=== PATIENT | male | born 1935 | race Caucasian/White ===

== ENCOUNTER → 2020-06-23 11:05 | Outpatient (CLI) | payer MEDICARE, SELFPAY ==
[2020-06-23 09:59] VITALS: BMI 27.6
[2020-06-23 12:34] LABS: Absolute Lymphocyte Count 1.63 X10^3/uL (0.83-4.51); Absolute Neutrophil Count 3.2 X10^3/uL (2.0-7.7); Basophil# 0.03 X10^3/uL; Basophil% 0.5 % (0-1); Eosinophils% 1.8 % (0-5); Hematocrit 49.9 % (40-54); Hemoglobin 16.1 g/dL (13.0-16.5); Lymphocyte # 1.63 X10^3/ul (4.0); Lymphocyte % 29.3 % (19-41); Mean Corp Hgb Conc 32.3 g/dL (32-36); Mean Corpuscular Volume 93.1 fL (80-94); Mean Platelet Vol. 10.4 fl (6.2-12.0); Monocyte% 10.8 % (0-10); NRBC Flagged by Analyzer 0 % (0-5); Neutrophil # 3.19 X10^3/uL (2.7-7.7); Neutrophil % 57.4 % (47-70); Platelet Count 160 K/mm3 (150-450); RBC Distribution Width CV 13.7 % (11.6-14.6); RBC Distribution Width SD 47.1 fl (35.1-43.9); Red Blood Count 5.36 M/mm3 (4.6-6.2); White Blood Count 5.6 K/mm3 (4.4-11.0)
[2020-06-23 12:56] LABS: Vitamin D,25 Hydroxy 43.1 ng/mL
[2020-06-23 13:07] LABS: Hemoglobin A1c 6.3 % (3.8-5.6)
[2020-06-23 13:08] LABS: ALB/GLOB Ratio 0.8 RATIO (0.9-2.4); AST(SGOT) 19 U/L (15-37); Alanine Aminotransfer ALT/SGPT 25 U/L (16-61); Albumin, Serum 3.4 g/dL (3.2-5.0); Alkaline Phosphatase 91 U/L (45-117); Anion Gap 6 (5-15); BUN 18 mg/dL (7-18); BUN/Creat Ratio 15.7 RATIO (10-20); Calcium,Total 9.1 mg/dL (8.5-10.1); Chloride 107 mmol/L (98-107); Creatinine, Serum 1.15 mg/dL (0.70-1.30); EST Glomerular Filtration Rate 64 mL/min (>60); Est Glom Filt Rate - Afr Amer 78 mL/min (>60); Globulin 4.1 g/dL (2.2-4.2); Glucose 85 mg/dL (74-106); PSA,Total- Diagnostic 0.61 ng/mL (0.0-4.0); Potassium 4.2 mmol/L (3.5-5.1); Protein, Total 7.5 g/dL (6.4-8.2); Sodium Level 142 mmol/L (136-145)
== END ==
PROVIDERS: PCP Internal Medicine; Referring Provider Internal Medicine; Visit Provider Internal Medicine
DX: N20.0 Calculus of kidney (principal); R73.09 Other abnormal glucose; R39.9 Unspecified symptoms and signs involving the genitourinary system; D69.6 Thrombocytopenia, unspecified; R79.89 Other specified abnormal findings of blood chemistry; R35.1 Nocturia; E55.9 Vitamin D deficiency, unspecified
CPT/HCPCS: 36415; 80053; 82306; 83036; 84153; 85025

== ENCOUNTER → 2022-01-04 | Outpatient (CLI) | payer MEDICARE, SELFPAY ==
--- NOTE | 2022-01-04 08:40 | RAD_ITS ---
STUDY: X-RAY - ESOPHAGUS (BARIUM SWALLOW) WITH FLUOROSCOPY REASON FOR EXAM: Male, 86 years old. Food sticking distal esophagus, hx fundoplication TECHNIQUE: 17 view(s) of the esophagus were obtained following swallowing of barium. FLUOROSCOPY TIME (if supplied): (31 seconds) minutes/seconds COMPARISON: None. FINDINGS: There is no demonstrated esophageal foreign body. There is no demonstrated stricture or mucosal abnormality. Normal gastroesophageal junction, without a demonstrated hiatal hernia. The patient ingested a 12 mm tablet of barium. The 12 mm tablet of barium is trapped at the gastroesophageal junction. There is atherosclerotic calcification of the aortic arch with tortuosity of the descending aorta. Normal visualized pulmonary parenchyma. There are diffuse degenerative changes of the visualized thoracic spine. RAD/Esophagus Dual Contrast IMPRESSION: The ingested 12 mm tablet of barium is trapped at the gastroesophageal junction. Electronically Signed: Max Mccollum MD at 12:39 EDT ,
== END | disposition home or self-care (01) ==
LOC: RAD 08:36
PROVIDERS: PCP Internal Medicine; Visit Provider Nurse Practitioner Adult Health
DX: R13.10 Dysphagia, unspecified (principal); Z98.890 Other specified postprocedural states
CPT/HCPCS: 74221

== ENCOUNTER 2022-01-24 09:15 | Day surgery (SDC) | payer MEDICARE, SELFPAY ==
[2022-01-24] VITALS (9 sets, daily range): BP systolic 109–157; BP diastolic 61–71; PULSE 53–80; RESP 16–20; TEMP 35.8–36.2; O2SAT 91–97; BMI 27.6
[2022-01-24] MEDS: Lactated Ringers 1,000 ML 15 ML IV (09:38)
--- NOTE | 2022-01-24 10:30 | IMM_PTH ---
PATIENT: TANK RODRIGUEZ LOC: EN U#:[id number] AGE/SX: 86/M ROOM: RE01/24/[address]: Dr. Nick Orellana DO : 1935 BED: DIS: 01/24/2022 SPEC #: [id number] RECD: 01/24/22 14:25 STATUS: FCO TEMO #: [id number] MORRO: 01/24/22 10:[address]: Nick Orellana DEPT: IMMUNOHISTOCHEMISTRY RECD BY: Gianna Freitas ENTERED: 01/24/22 14:26 SP TYPE: IMMUNO OTHR DR: Dr. Jacqueline Flores MD Tissues: A - Stomach, NOS B - Stomach, NOS Procedures: H Pylori (initial) P53 (initial) KI-67 (add) PHYSICIAN & INSTITUTION [place] [facility] [id number] SPECIMEN INFORMATION: Tissue Source: A ? Gastric body biopsy, B ? Gastric ulcer biopsy Clinical Info: Dysphagia Specimen Number: [id number] A & B CPT code: 74699 x2, 05025 METHODOLOGY: Deparaffinized sections of prefer/formalin-fixed tissue or PAP/DQ stained slides are incubated with monoclonal/polyclonal antibodies/oligonucleotide probes. Localization is made via biotin free immunoperoxidase method. Appropriate controls are performed and reacted as expected. Results on target cell population are indicated in the following table: RESULTS: ANTIBODY / CLONE RESULT Block A H Pylori (polyclonal) negative Block B P53 (DO-7) negative Ki-67 (30-9) positive, low These tests were developed and their performance characteristics determined by [facility]. They may not have been cleared or approved by the U.S. Food and Drug Administration. The FDA has determined that such clearance or approval is not necessary. The above immunohistochemical/dualISH markers are ordered and reviewed by the Pathologist. INTERPRETATION: A. Gastric body, biopsy: Negative for Helicobacter pylori organisms. B. Gastric ulcer, biopsy: No evidence of dysplasia. AM:ambika 01/26/2022
--- NOTE | 2022-01-24 10:30 | EGD_PTH ---
PATIENT: TANK RODRIGUEZ LOC: EN U#:[id number] AGE/SX: 86/M ROOM: RE01/24/[address]: Dr. Nick Orellana DO : 1935 BED: DIS: 01/24/2022 SPEC #: [id number] RECD: 01/24/22 12:55 STATUS: FCO TEMO #: [id number] MORRO: 01/24/22 10:[address]: Nick Orellana DEPT: SURGICAL PATHOLOGY RECD BY: Shameka Green ENTERED: 01/24/22 13:57 SP TYPE: EGD BIOPSY RJ DR: Dr. Jacqueline Flores MD Tissues: A - Gastric mucous membrane B - Gastric mucous membrane C - Esophagus, NOS Procedures: Special Stain Group II Surgery Specimen Level IV Alcian Blue/PAS (control) HEADER OPERATION: EGD ([facility]), biopsy PRE-OP DIAGNOSIS: Dysphagia TISSUE SUBMITTED: A ? Gastric body biopsy, B ? Gastric ulcer biopsy, C ? Distal esophagus biopsy MICROSCOPIC DIAGNOSIS A. Gastric body, biopsy: Mild chronic gastritis. See comment. B. Gastric ulcer, biopsy: Focal ulceration with associated acute inflammation and granulation. Intestinal metaplasia. No evidence of dysplasia. See comment. C. Distal esophagus, biopsy: Gastroesophageal junctional mucosa with mild chronic inflammation. Focal changes of reflux. 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 See comment. AM:ambika 01/25/2022 COMMENT A. The results of immunohistochemistry for Helicobacter pylori will be reported separately ([id number]). B. Immunohistochemistry ([id number]) for P53 and Ki-67 will be performed and results will be reported separately. Alcian blue/PAS stain with matched control supports the above diagnosis. C. Alcian blue/PAS stain with matched control supports the above diagnosis. MICROSCOPIC DESCRIPTION Slides are reviewed. GROSS DESCRIPTION A - Received in fixative is one container labeled with the patient's name and designated gastric body biopsy. The specimen consists of one irregular fragment of light carey soft tissue that measures 0.5 x 0.3 x 0.1 cm. The specimen is totally submitted in one cassette. B - Received in fixative is one container labeled with the patient's name and designated gastric ulcer biopsy. The specimen consists of multiple irregular fragments of light carey soft tissue that in aggregate measure 1 x 0.6 x 0.1 cm. The specimen is totally submitted in one cassette. C - Received in fixative is one container labeled with the patient's name and designated distal esophagus biopsy. The specimen consists of multiple irregular fragments of light carey soft tissue that in aggregate measure 2 x 1 x 0.1 cm. The specimen is totally submitted in one cassette. / AM:ambika 01/24/2022 TC:2 CPT: 94840 x3, 12429 x2
--- NOTE | 2022-01-24 10:36 | PCM.HP.BLA ---
History and Physical Date of Admission: 01/24/22 TANK RODRIGUEZ, is an 86 M who presents to the office today for difficulty swallowing food, started at least 2 mos ago, not getting worse. Food feels like it gets stuck at distal esophagus, doesn't matter what kind of food. At times he has to cough up the food and water that followed it. is concerned that may happen at a restaurant. He denies any pain in the chest or abdomen. No heartburn. No emesis. No nausea. Hx of fundoplication [place] hiatal her[place] [address] Sarabjit Acevedo in [place]. Hx of surgery for peptic ulcer disease in the 1970s. Bowels are regular, he denies diarrhea or constipation. No melena or hematochezia. Very healthy in general, no prescription meds. ROS Const Constitutional: No fatigue ENT ENT: No difficulty swallowing Gastro GI: No abdominal pain, belching, bloating, change in bowel habits, change in stool character, coffee ground emesis, constipation, cramping, diarrhea, heartburn, difficulty swallowing, feeling full early, excessive flatus, incontinent of stools, Vomiting blood/hematemesis, Blood in stool, loose stools, Black,tarry stools, nausea/dyspepsia, pain with swallowing, vomiting or other Musc Musculoskeletal: No joint pain Skin Skin: No yellowing of the eye or itchy eyes Psych Psychiatric: No anxiety and No depression Endo Endocrine: No fatigue Aller/Imm Allergy/Immunologic: No itchy eyes Chris/Lymp Hematologic/Lymphatic: No easy bleeding or easy bruising Exam Const General: healthy appearing, no acute distress, well developed and well groomed Nutritional Appearance: overweight Chest Chest palpation & inspection: normal inspection of the chest Resp Effort & Inspection: normal respiratory effort GI Palpation: soft and nontender Quality Reporting Tobacco Screening ([facility] 138) Smoking Status: Former smoker Assessment and Plan Assessment and Plan (1) Dysphagia: Status: Acute (2) History of fundoplication: Status: Acute Orders: Orders: Esophagus Dual Contrast Today R13.10, Z98.890 Plan - Marcela Cardona SASH ASSEMBLER, SASH ASSEMBLER-C: 86 yr old male w/ difficulty swallowing food, hx of fundoplication. He will be scheduled for EGD with Dr Orellana; in the meantime we will get esophagram. I have re-examined the patient. There are no clinical changes since date of exam.
--- NOTE | 2022-01-24 12:08 | OP.EGD_ITS ---
Patient Name: Lee Huitron Procedure Date: 01/24/2022 11:23 AM Date of : 1935 Age: 86 Procedure: Upper GI endoscopy Indications: Dysphagia Providers: Nick Orellana DO Medicines: Monitored Anesthesia Care Patient Profile: This is an 86 year old male. Refer to note in patient chart for documentation of history and physical. Patient has symptoms of dysphagia with both liquids and solids. Complications: No immediate complications. Procedure: Pre-Anesthesia Assessment: - Prior to the procedure, a History and Physical was performed, and patient medications and allergies were reviewed. The patient is competent. The risks and benefits of the procedure and the sedation options and risks were discussed with the patient. All questions were answered and informed consent was obtained. Patient identification and proposed procedure were verified by the physician in the pre-procedure area. Mental Status Examination: alert and oriented. Airway Examination: normal oropharyngeal airway and neck mobility. Respiratory Examination: clear to auscultation. CV Examination: normal. Prophylactic Antibiotics: The patient does not require prophylactic antibiotics. Prior Anticoagulants: The patient has taken no previous anticoagulant or antiplatelet agents. ASA Grade Assessment: II - A patient with mild systemic disease. After reviewing the risks and benefits, the patient was deemed in satisfactory condition to undergo the procedure. The anesthesia plan was to use moderate sedation / analgesia (conscious sedation). Immediately prior to administration of medications, the patient was re-assessed for adequacy to receive sedatives. The heart rate, respiratory rate, oxygen saturations, blood pressure, adequacy of pulmonary ventilation, and response to care were monitored throughout the procedure. The physical status of the patient was re-assessed after the procedure. After obtaining informed consent, the endoscope was passed under direct vision. Throughout the procedure, the patient's blood pressure, pulse, and oxygen saturations were monitored continuously. The gastroscope was introduced through the mouth, and advanced to the second part of duodenum. The upper GI endoscopy was accomplished without difficulty. The patient tolerated the procedure well. Scope In: 11:31:16 AM Scope Out: 11:58:08 AM Total Procedure Duration Time 0 hours 26 minutes 52 seconds Findings: LA Grade C (one or more mucosal breaks continuous between tops of 2 or more mucosal folds, less than 75% circumference) esophagitis with bleeding was found 36 to 40 cm from the incisors. Biopsies were taken with a cold forceps for histology. Verification of patient identification for the specimen was done. Estimated blood loss was minimal. Coagulation for hemostasis using heater probe was successful. Estimated blood loss was minimal. A severe Schatzki ring was found in the lower third of the esophagus. A TTS dilator was passed through the scope. Dilation with an 18-19-20 mm balloon dilator was performed to 13 mm. The dilation site was examined following endoscope reinsertion and showed mild improvement in luminal narrowing. Estimated blood loss was minimal. A medium-sized hiatal hernia was present. Diffuse moderate inflammation characterized by erosions, erythema and friability was found in the gastric body. Biopsies were taken with a cold forceps for histology. Verification of patient identification for the specimen was done. Estimated blood loss was minimal. One non-bleeding linear gastric ulcer with no stigmata of bleeding was found in the gastric antrum. The lesion was 6 mm in largest dimension. Biopsies were taken with a cold forceps for histology. Verification of patient identification for the specimen was done. Estimated blood loss was minimal. The second portion of the duodenum was normal. Evidence of a pyloroplasty was found in the pylorus. This was characterized by ulceration. Impression: - LA Grade C reflux esophagitis. Biopsied. Treated with a heater probe. - Severe Schatzki ring. Dilated. - Medium-sized hiatal hernia. - Chronic gastritis. Biopsied. - Non-bleeding gastric ulcer with no stigmata of bleeding. Biopsied. - Normal second portion of the duodenum. - A pyloroplasty was found, characterized by ulceration. Recommendation: - Discharge patient to home. - Use Protonix (pantoprazole) 40 mg PO BID for 12 weeks. - Use sucralfate suspension 1 gram PO QID for 4 days. - No aspirin, ibuprofen, naproxen, or other non-steroidal anti-inflammatory drugs for 13 days. Procedure Code(s): --- Professional --- 78572, 59, Esophagogastroduodenoscopy, flexible, transoral; with control of bleeding, any method 66606, 51, Esophagogastroduodenoscopy, flexible, transoral; with transendoscopic balloon dilation of esophagus (less than 30 mm diameter) 10510, 59, Esophagogastroduodenoscopy, flexible, transoral; with biopsy, single or multiple CPT copyright 2017 [employer]. All rights reserved. The codes documented in this report are preliminary and upon program supervisor review may be revised to meet current compliance requirements. Nick Orellana DO 01/24/2022 12:08:03 PM This report has been signed electronically. Number of Addenda: 1 Note Initiated On: 01/24/2022 11:23 AM Addendum Number: 1 Addendum Date: 05/29/2022 6:32:23 AM MAC was used as sedation for this procedure. Nick Orellana DO 05/29/2022 6:32:29 AM This report has been signed electronically.
--- NOTE | 2022-01-24 12:09 | OP.CCLET_ITS ---
05/29/2022 Jacqueline Flores [facility] [address] [place] [address] Re : Upper GI endoscopy procedure for Lee Huitron Dear Dr. Flores This procedure was performed on Monday, January 24, 2022. My impressions and recommendations are as follows: Impressions : - LA Grade C reflux esophagitis. Biopsied. Treated with a heater probe. - Severe Schatzki ring. Dilated. - Medium-sized hiatal hernia. - Chronic gastritis. Biopsied. - Non-bleeding gastric ulcer with no stigmata of bleeding. Biopsied. - Normal second portion of the duodenum. - A pyloroplasty was found, characterized by ulceration. Recommendations : - Discharge patient to home. - Use Protonix (pantoprazole) 40 mg PO BID for 12 weeks. - Use sucralfate suspension 1 gram PO QID for 4 days. - No aspirin, ibuprofen, naproxen, or other non-steroidal anti-inflammatory drugs for 13 days. My findings are described in the full procedure note, which is enclosed. If I can be of further assistance, please feel free to contact me at . Sincerely, Nick Orellana, 01/24/2022 12:08:03 PM This report has been signed electronically.
== END 2022-01-24 13:45 | disposition home or self-care (01) ==
LOC: EN 09:16 → AC 09:17
PROVIDERS: PCP Internal Medicine; Referring Provider Internal Medicine; Visit Provider Internal Medicine Gastroenterology
PROC: 0DJ08ZZ Inspection of Upper Intestinal Tract, Via Natural or Artificial Opening Endoscopic (ICD-10-PCS; CPT 43235; principal; 2022-01-24 10:25)
DX: K21.00 Gastro-esophageal reflux disease with esophagitis, without bleeding (principal); K29.50 Unspecified chronic gastritis without bleeding; K44.9 Diaphragmatic hernia without obstruction or gangrene; K22.70 Barrett's esophagus without dysplasia; K22.2 Esophageal obstruction; K25.3 Acute gastric ulcer without hemorrhage or perforation; Z87.891 Personal history of nicotine dependence
CPT/HCPCS: 43239; 43249; 43255; 88305; 88313; 88341; 88342; J7120; J2405

== ENCOUNTER → 2022-07-16 | Outpatient (CLI) | payer MEDICARE, SELFPAY ==
--- NOTE | 2022-07-16 13:59 | ST.MBS ---
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 He recently had follow-up with gastroenterology WORKPLACE REHABILITATION OFFICER, Marcela Cardona, on 07/08/2022 due to partial return of dysphagia symptoms, which resolved after esophageal dilation of severe Schatzki ring on 01/24/2022. He says food sits at bottom of throat/upper esophagus, and he must swallow twice. He has continued on pantoprazole to manage reflux. Current Diet Ordered: Regular textures / Thin liquids Dentition: WNL Mental Status: WNL Respiratory Status: Oxygenating on Room Air - Penetration-Aspiration Scale Penetration-Aspiration Scale: OBJECTIVE ASSESSMENT OF SWALLOW FUNCTION (QUANTITATIVE ? PER TRIAL): PENETRATION / ASPIRATION SCALE (ORTIZ): 1 = does not enter airway 2 = enters airway/above vocal folds/ejected 3 = enters airway/above vocal folds/not ejected 4 = enters airway/contacts vocal folds/ejected 5 = enters airway/contacts vocal folds/not ejected 6 = enters airway/below vocal folds/ejected 7 = enters airway/below vocal folds/not ejected despite effort 8 = enters airway/below vocal folds/no effort VIDEOFLOROSCOPIC SCALE SCORE (ORTIZ): Grade I = aspiration of material that has penetrated into the laryngeal vestibule, intact cough reflex Grade II = aspiration < 10 % of the bolus, intact cough reflex Grade III = aspiration of < 10 % of the bolus, reduced cough reflex or aspiration of > 10 % of the bolus, intact cough reflex Grade IV = aspiration of > 10 % of the bolus, reduced cough reflex - Penetration-Aspiration Scale Score Thin Liquid via teaspoon Result: 1= does not enter airway Thin Liquid via teaspoon Trial 2 Result: 1= does not enter airway Thin Liquid via small single sip from cup cued third swallow Result: 2= enter airway/above vocal folds/ejected Thin Liquid via sequential sips from cup Result: 3= enters airways/above vocal folds/not ejected [place] Thick Liquid via small single sip from cup Result: 1= does not enter airway Honey Thick Liquid via small single sip from cup Result: 1= does not enter airway Pudding via teaspoon with esophageal screen Result: 1= does not enter airway 1/2 Cookie Result: 1= does not enter airway Thin Liquid via single sip from straw Result: 3= enters airways/above vocal folds/not ejected Thin Liquid via small single sip from cup Effortful swallow Result: 1= does not enter airway - Oral Phase Labial Seal: No Labial Escape Tongue Control During Bolus Hold: Posterior escape of greater than half of bolus Bolus Preparation/Mastication: Timely and efficient chewing and mashing Bolus Transport/Lingual Motion: Delayed initiation of tongue motion Oral Residue: Residue collection on oral structures - piecemeal deglutition of cookie - Pharyngeal Phase Initiation of Pharyngeal Swallow: Bolus head in pyriforms Soft Palate Elevation: Trace column of contrast/air between soft palate and pharyngeal wall Laryngeal Elevation: Partial superior movement thyroid cart/partial apprx aryt-epig petiole Anterior Hyoid Excursion: Partial anterior movement Epiglottic Movement: Partial inversion Laryngeal Vestibule Closure at Height of Swallow: Incomplete; narrow column of air/contrast in laryngeal vestibule Pharyngeal Stripping Wave: Present - diminished Pharyngoesophageal Segment Opening: Parital distension and partial duration; parital obstruction of flow Tongue Base Retraction: Wide column of contrast between tongue base & post. pharyngeal wall Pharyngeal Residue: Collection of residue within or on pharyngeal structures - Esophageal Phase Esophageal Clearance: Complete clearance - Treatment Strategies Effects of treatment strategies attemped:: Double swallow = effective. Effortful swallow = effective. - Diagnosis/Impression Diagnosis: Mild oropharyngeal phase dysphagia (R13.12) Impression: The oral phase is primarily marked by... -Decreased bolus control with >1/2 of the bolus spilling posteriorly to the pyriforms prior to swallow onset observed with thin liquids especially. -Delayed tongue motion for A-P transport -Mild oral residue after the swallow of cookie, which effectively cleared with independent initiation of a second swallow. The pharyngeal phase is primarily marked by... -Decreased airway closure during the swallow due to decreased anterior hyoid excursion, decreased epiglottic inversion, and decreased laryngeal elevation. -Moderately decreased tongue base retraction, mildly decreased UES opening/duration, and mildly decreased pharyngeal stripping wave with resulting mild-moderate pharyngeal residues of liquids after the swallow. Independent use of a double swallow effectively cleared the pharynx. He demonstrated good pharyngeal clearance of pudding and cookie despite sensation of cookie caught in his throat (only trace residue present on fluoroscopy - INTERNAL COMMUNICATIONS MANAGER discussed the patient possibly was experiencing globus sensation secondary to reflux). -Consistent laryngeal penetration with thin liquids via cup. Sequential sips and sips via straw did not reliably eject from the laryngeal vestibule after the swallow. Use of effortful swallow and decreased bolus size was most effective in decreasing laryngeal penetration during the swallow. - Recommendations Diet: Regular Textures, Thin Liquids Compensatory Strategies: Small Bites, Small Sips - hard swallow on each sip, double swallow on each sip, Slow Rate, Alternate bites/solids and sips/liquids, Sitting upright, Remain sitting upright for 30 minutes after PO intake Supervision: Assist as needed - family assist with cues as needed Recommend Repeat Modified Barium Swallow: No Need for Skilled Speech Therapy Services: Yes Comment: Will recommend the patient for outpatient dysphagia therapy to address deficits in oropharyngeal swallow function. Will recommend the patient for oropharyngeal strengthening to improve tongue base retraction, laryngeal elevation, hyoid excursion, pharyngeal contraction, and duration of UES opening (Jessica, Danika, effortful swallow, CTAR). The patient would benefit from thorough education regarding diet recommendations and recommended compensatory strategies. He would also benefit from continued education re: reflux management. Recommended Referrals: GI Consult - continue to follow with GI for management of reflux and Vizcarra's esophagus Education Completed: 1. Described result of evaluation., 2. Pt understands evaluation & agrees with goals and treatment plan., 4. Family/caregivers understand evaluation & agree w/ goals & tx plan., 7. Pt requires further education on strategies & risks. Comment: Additional education provided re: reflux management. INTERNAL COMMUNICATIONS MANAGER recommended considering use of bed wedge, limiting food/drink 3 hours before lying down for bed, increasing hydration, avoiding foods high in fat/acid, avoiding carbonated beverages, and avoiding caffeine and chocolate. Pt would benefit from continued education. - Status Active ST Patient: Active - Contact Information [facility] Speech Therapy:: Joanne Cruz M.A. [facility]-INTERNAL COMMUNICATIONS MANAGER Speech-Language Pathologist [facility] [address] [place] [address] [email or web address] [phone] 07/16/22 14:01
== END | disposition home or self-care (01) ==
PROVIDERS: PCP Internal Medicine; Referring Provider Nurse Practitioner Adult Health; Visit Provider Nurse Practitioner Adult Health
DX: R13.12 Dysphagia, oropharyngeal phase (principal)
CPT/HCPCS: 74230; 92611

== ENCOUNTER 2022-07-20 11:52 | Outpatient (RCR) | payer MEDICARE, SELFPAY ==
--- NOTE | 2022-07-24 10:22 | ST ---
[facility] Speech Pathology [address] [place] [place] [address] Modified Barium Swallow Study MR#: [id number] Acct: [id number] Name: LEE RODRIGUEZ Rep #: [id number] : 1935 86 From: Joanne Cruz M.A., [facility]-PIE BOTTOMER Modified Barium Swallow - Patient Information Study Date: 07/16/22 Study Time: 13:00 Direct Billable Minutes: 90 Total Minutes procedure & reportin Diagnosis: Vizcarra Esophagus (K22.7), Dysphagia (R13.10) Referring Physician: Marcela Cardona NP Reason for Referral: Objectively assess swallow function, risk for aspiration, and determine recommendations for least restrictive diet textures and compensatory strategies to improve safety of swallow. 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 He says food sits at bottom of throat/upper esophagus, and he must swallow twice. He has continued on pantoprazole to manage reflux. Current Diet Ordered: Regular textures / Thin liquids Dentition: WNL Mental Status: WNL Respiratory Status: Oxygenating on Room Air - Penetration-Aspiration Scale Penetration-Aspiration Scale: OBJECTIVE ASSESSMENT OF SWALLOW FUNCTION (QUANTITATIVE ? PER TRIAL): PENETRATION / ASPIRATION SCALE (ORTIZ): 1 = does not enter airway 2 = enters airway/above vocal folds/ejected 3 = enters airway/above vocal folds/not ejected 4 = enters airway/contacts vocal folds/ejected 5 = enters airway/contacts vocal folds/not ejected 6 = enters airway/below vocal folds/ejected 7 = enters airway/below vocal folds/not ejected despite effort 8 = enters airway/below vocal folds/no effort VIDEOFLOROSCOPIC SCALE SCORE (ORTIZ): Grade I = aspiration of material that has penetrated into the laryngeal vestibule, intact cough reflex Grade II = aspiration < 10 % of the bolus, intact cough reflex Grade III = aspiration of < 10 % of the bolus, reduced cough reflex or aspiration of > 10 % of the bolus, intact cough reflex Grade IV = aspiration of > 10 % of the bolus, reduced cough reflex. - Penetration-Aspiration Scale Score Thin Liquid via teaspoon Result: 1= does not enter airway Thin Liquid via teaspoon Trial 2 Result: 1= does not enter airway Thin Liquid via small single sip from cup cued third swallow Result: 2= enter airway/above vocal folds/ejected Thin Liquid via sequential sips from cup Result: 3= enters airways/above vocal folds/not ejected [place] Thick Liquid via small single sip from cup Result: 1= does not enter airway [place] Thick Liquid via small single sip from cup Result: 1= does not enter airway Pudding via teaspoon with esophageal screen Result: 1= does not enter airway 1/2 Cookie Result: 1= does not enter airway Thin Liquid via single sip from straw Result: 3= enters airways/above vocal folds/not ejected Thin Liquid via small single sip from cup Effortful swallow Result: 1= does not enter airway - Oral Phase Labial Seal: No Labial Escape Tongue Control During Bolus Hold: Posterior escape of greater than half of bolus Bolus Preparation/Mastication: Timely and efficient chewing and mashing Bolus Transport/Lingual Motion: Delayed initiation of tongue motion Oral Residue: Residue collection on oral structures - piecemeal deglutition of cookie - Pharyngeal Phase Initiation of Pharyngeal Swallow: Bolus head in pyriforms Soft Palate Elevation: Trace column of contrast/air between soft palate and pharyngeal wall Laryngeal Elevation: Partial superior movement thyroid cart/partial apprx aryt-epig petiole Anterior Hyoid Excursion: Partial anterior movement Epiglottic Movement: Partial inversion Laryngeal Vestibule Closure at Height of Swallow: Incomplete; narrow column of air/contrast in laryngeal vestibule Pharyngeal Stripping Wave: Present - diminished Pharyngoesophageal Segment Opening: Parital distension and partial duration; parital obstruction of flow Tongue Base Retraction: Wide column of contrast between tongue base & post. pharyngeal wall Pharyngeal Residue: Collection of residue within or on pharyngeal structures - Esophageal Phase Esophageal Clearance: Complete clearance - Treatment Strategies Effects of treatment strategies attemped:: Double swallow = effective. Effortful swallow = effective. - Diagnosis/Impression Diagnosis: Mild oropharyngeal phase dysphagia (R13.12) Impression: The oral phase is primarily marked by... -Decreased bolus control with >1/2 of the bolus spilling posteriorly to the pyriforms prior to swallow onset observed with thin liquids especially. -Delayed tongue motion for A-P transport -Mild oral residue after the swallow of cookie, which effectively cleared with independent initiation of a second swallow. The pharyngeal phase is primarily marked by... -Decreased airway closure during the swallow due to decreased anterior hyoid excursion, decreased epiglottic inversion, and decreased laryngeal elevation. -Moderately decreased tongue base retraction, mildly decreased UES opening/duration, and mildly decreased pharyngeal stripping wave with resulting mild-moderate pharyngeal residues of liquids after the swallow. Independent use of a double swallow effectively cleared the pharynx. He demonstrated good pharyngeal clearance of pudding and cookie despite sensation of cookie caught in his throat (only trace residue present on fluoroscopy - PIE BOTTOMER discussed the patient possibly was experiencing globus sensation secondary to reflux). -Consistent laryngeal penetration with thin liquids via cup. Sequential sips and sips via straw did not reliably eject from the laryngeal vestibule after the swallow. Use of effortful swallow and decreased bolus size was most effective in decreasing laryngeal penetration during the swallow. - Recommendations Diet: Regular Textures, Thin Liquids Compensatory Strategies: Small Bites, Small Sips - hard swallow on each sip, double swallow on each sip, Slow Rate, Alternate bites/solids and sips/liquids, Sitting upright, Remain sitting upright for 30 minutes after PO intake Supervision: Assist as needed - family assist with cues as needed Recommend Repeat Modified Barium Swallow: No Need for Skilled Speech Therapy Services: Yes Comment: Will recommend the patient for outpatient dysphagia therapy to address deficits in oropharyngeal swallow function. Will recommend the patient for oropharyngeal strengthening to improve tongue base retraction, laryngeal elevation, hyoid excursion, pharyngeal contraction, and duration of UES opening (JessicaLee gillespiesohn, effortful swallow, CTAR). The patient would benefit from thorough education regarding diet recommendations and recommended compensatory strategies. He would also benefit from continued education re: reflux management. Recommended Referrals: GI Consult - continue to follow with GI for management of reflux and Vizcarra's esophagus Education Completed: 1. Described result of evaluation., 2. Pt understands evaluation & agrees with goals and treatment plan., 4. Family/caregivers understand evaluation & agree w/ goals & tx plan., 7. Pt requires further education on strategies & risks. Comment: Additional education provided re: reflux management. PIE BOTTOMER recommended considering use of bed wedge, limiting food/drink 3 hours before lying down for bed, increasing hydration, avoiding foods high in fat/acid, avoiding carbonated beverages, and avoiding caffeine and chocolate. Pt would benefit from continued education. - Contact Information [facility] Speech Therapy:: Joanne Cruz M.A. [facility] BOTTOMER Speech-Language Pathologist [facility] [address] [place] [address] [email or web address] [phone] 07/16/22 14:01
--- NOTE | 2022-07-24 10:40 | HP.SP.EVAL ---
History - History Date of Eval: 07/20/22 Medical Diagnosis (from RX): Dysphagia Date of Onset of Diagnosis: February 2022 Previous speech therapy: No Other Relevant Medical History/Diagnoses/Surgery: Esophageal dilation on 01/24/22 Medications related to this diagnosis: Pantoprazole Smoking Status: Never smoker Hx Smoking: Yes - SMOK'D PIPE ABOUT 30YR/ QUIT 20YRS AGO Hx Tobacco Use: No - Pain Is pain an issue with your current prescribed condition?: No Patient Allergies - Allergies Allergies No Known Allergies Allergy (Verified 07/02/22 10:48) Subjective Dysphagia - Symptoms Reported Other: Globus feeling - Current Diet Solids Current Diet: Regular - Current Diet Liquids Current Liquids: Thin [place] free water Protocol: No Objective Dysphagia - Impact Impact on Safety & Functioning: Risk for Aspiration - Recommendations Modified Barium Swallow/Cookie Swallow Recommended: Yes Swallowing Treatment: Yes - Diet Texture Recommendations Solids: Regular (Level 7) Liquids: Thin (Level 0) [place] free water Protocol: No - Safety Saftey Precautions/Swallowing Recommendations (Check all that Apply): Small Sips & Bites when Eating, Multiple Swallows, Alternate Liquids & Solids, Other (Specify Below) Other: Effortful swallow - Results Swallowing Within Normal Limits: No Swallowing Diagnosis: Oropharyngeal Phase Dysphagia (R13.12) Severity: Mild Modified Barium Results Hx MBS Results (from prior exam): 07/24/22 10:22 Speech Therapy by Navdeep Coronel [facility] Speech Pathology [address] [place] [address] Modified Barium Swallow Study MR#: [id number] Acct: [id number] Name: LEE RODRIGUEZ Rep #: [id number] : 1935 86 From: Joanne Cruz M.A., [facility]-BULLET SLUG CASTING MACHINE OPERATOR Modified Barium Swallow - Patient Information Study Date: 07/16/22 Study Time: 13:00 Direct Billable Minutes: 90 Total Minutes procedure & reportin Diagnosis: Vizcarra Esophagus (K22.7), Dysphagia (R13.10) Referring Physician: Marcela Cardona NP Reason for Referral: Objectively assess swallow function, risk for aspiration, and determine recommendations for least restrictive diet textures and compensatory strategies to improve safety of swallow. 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 He says food sits at bottom of throat/upper esophagus, and he must swallow twice. He has continued on pantoprazole to manage reflux. Current Diet Ordered: Regular textures / Thin liquids Dentition: WNL Mental Status: WNL Respiratory Status: Oxygenating on Room Air - Penetration-Aspiration Scale Penetration-Aspiration Scale: OBJECTIVE ASSESSMENT OF SWALLOW FUNCTION (QUANTITATIVE ? PER TRIAL): PENETRATION / ASPIRATION SCALE (ORTIZ): 1 = does not enter airway 2 = enters airway/above vocal folds/ejected 3 = enters airway/above vocal folds/not ejected 4 = enters airway/contacts vocal folds/ejected 5 = enters airway/contacts vocal folds/not ejected 6 = enters airway/below vocal folds/ejected 7 = enters airway/below vocal folds/not ejected despite effort 8 = enters airway/below vocal folds/no effort VIDEOFLOROSCOPIC SCALE SCORE (ORTIZ): Grade I = aspiration of material that has penetrated into the laryngeal vestibule, intact cough reflex Grade II = aspiration < 10 % of the bolus, intact cough reflex Grade III = aspiration of < 10 % of the bolus, reduced cough reflex or aspiration of > 10 % of the bolus, intact cough reflex Grade IV = aspiration of > 10 % of the bolus, reduced cough reflex. - Penetration-Aspiration Scale Score Thin Liquid via teaspoon Result: 1= does not enter airway Thin Liquid via teaspoon Trial 2 Result: 1= does not enter airway Thin Liquid via small single sip from cup cued third swallow Result: 2= enter airway/above vocal folds/ejected Thin Liquid via sequential sips from cup Result: 3= enters airways/above vocal folds/not ejected [place] Thick Liquid via small single sip from cup Result: 1= does not enter airway [place] Thick Liquid via small single sip from cup Result: 1= does not enter airway Pudding via teaspoon with esophageal screen Result: 1= does not enter airway 1/2 Cookie Result: 1= does not enter airway Thin Liquid via single sip from straw Result: 3= enters airways/above vocal folds/not ejected Thin Liquid via small single sip from cup Effortful swallow Result: 1= does not enter airway - Oral Phase Labial Seal: No Labial Escape Tongue Control During Bolus Hold: Posterior escape of greater than half of bolus Bolus Preparation/Mastication: Timely and efficient chewing and mashing Bolus Transport/Lingual Motion: Delayed initiation of tongue motion Oral Residue: Residue collection on oral structures - piecemeal deglutition of cookie - Pharyngeal Phase Initiation of Pharyngeal Swallow: Bolus head in pyriforms Soft Palate Elevation: Trace column of contrast/air between soft palate and pharyngeal wall Laryngeal Elevation: Partial superior movement thyroid cart/partial apprx aryt-epig petiole Anterior Hyoid Excursion: Partial anterior movement Epiglottic Movement: Partial inversion Laryngeal Vestibule Closure at Height of Swallow: Incomplete; narrow column of air/contrast in laryngeal vestibule Pharyngeal Stripping Wave: Present - diminished Pharyngoesophageal Segment Opening: Parital distension and partial duration; parital obstruction of flow Tongue Base Retraction: Wide column of contrast between tongue base & post. pharyngeal wall Pharyngeal Residue: Collection of residue within or on pharyngeal structures - Esophageal Phase Esophageal Clearance: Complete clearance - Treatment Strategies Effects of treatment strategies attemped:: Double swallow = effective. Effortful swallow = effective. - Diagnosis/Impression Diagnosis: Mild oropharyngeal phase dysphagia (R13.12) Impression: The oral phase is primarily marked by... -Decreased bolus control with >1/2 of the bolus spilling posteriorly to the pyriforms prior to swallow onset observed with thin liquids especially. -Delayed tongue motion for A-P transport -Mild oral residue after the swallow of cookie, which effectively cleared with independent initiation of a second swallow. The pharyngeal phase is primarily marked by... -Decreased airway closure during the swallow due to decreased anterior hyoid excursion, decreased epiglottic inversion, and decreased laryngeal elevation. -Moderately decreased tongue base retraction, mildly decreased UES opening/duration, and mildly decreased pharyngeal stripping wave with resulting mild-moderate pharyngeal residues of liquids after the swallow. Independent use of a double swallow effectively cleared the pharynx. He demonstrated good pharyngeal clearance of pudding and cookie despite sensation of cookie caught in his throat (only trace residue present on fluoroscopy - BULLET SLUG CASTING MACHINE OPERATOR discussed the patient possibly was experiencing globus sensation secondary to reflux). -Consistent laryngeal penetration with thin liquids via cup. Sequential sips and sips via straw did not reliably eject from the laryngeal vestibule after the swallow. Use of effortful swallow and decreased bolus size was most effective in decreasing laryngeal penetration during the swallow. - Recommendations Diet: Regular Textures, Thin Liquids Compensatory Strategies: Small Bites, Small Sips - hard swallow on each sip, double swallow on each sip, Slow Rate, Alternate bites/solids and sips/liquids, Sitting upright, Remain sitting upright for 30 minutes after PO intake Supervision: Assist as needed - family assist with cues as needed Recommend Repeat Modified Barium Swallow: No Need for Skilled Speech Therapy Services: Yes Comment: Will recommend the patient for outpatient dysphagia therapy to address deficits in oropharyngeal swallow function. Will recommend the patient for oropharyngeal strengthening to improve tongue base retraction, laryngeal elevation, hyoid excursion, pharyngeal contraction, and duration of UES opening (Jessica, Danika, effortful swallow, CTAR). The patient would benefit from thorough education regarding diet recommendations and recommended compensatory strategies. He would also benefit from continued education re: reflux management. Recommended Referrals: GI Consult - continue to follow with GI for management of reflux and Vizcarra's esophagus Education Completed: 1. Described result of evaluation., 2. Pt understands evaluation & agrees with goals and treatment plan., 4. Family/caregivers understand evaluation & agree w/ goals & tx plan., 7. Pt requires further education on strategies & risks. Comment: Additional education provided re: reflux management. BULLET SLUG CASTING MACHINE OPERATOR recommended considering use of bed wedge, limiting food/drink 3 hours before lying down for bed, increasing hydration, avoiding foods high in fat/acid, avoiding carbonated beverages, and avoiding caffeine and chocolate. Pt would benefit from continued education. - Contact Information [facility] Speech Therapy:: Joanne Cruz M.A. [facility]-BULLET SLUG CASTING MACHINE OPERATOR Speech-Language Pathologist [facility] [address] [place] [address] [email or web address] [phone] 07/16/22 14:01 Electronically signed by Navdeep Coronel M.A., [facility]-BULLET SLUG CASTING MACHINE OPERATOR on 07/24/22 10:26 Initialized on 07/24/22 10:22 - END OF NOTE Swallowing Performance Scale - Swallowing Performance Scale Swallowing Performance Scale Result: 2 Within Functional Limit Other - Other Education -: The patient, along with his , was educated on results of MBS as well as recommendations. The patient was provided with oropharyngeal exercises with instructions. He demonstrated the ability to independently complete, therefore he will complete at home for 4-6 weeks. He was educated on use of strategies ( double swallow and effortful swallow ) Plan - Plan Plan: Patient will complete exercises at home for 4-6 weeks with a re-evaluation after that in 6-8 weeks. Patient is in agreement with home exercise plan and will return in 6-8 weeks. - Recommendations Treatment Warranted: Yes Treatment Warranted: Dysphagia - Progress Prognosis: Good - Frequency Frequency: 1-2x in 6-8 weeks - Goals that are Established Determination:: Goals will be added/modified as deemed necessary and appropriate. Therapy will be discontinued when results of re-evaluation indicate therapy is no longer needed or lack of progress has been documented. - Goal #1-5 Goal #1: The Patient will tolerate the least restrictive means of nutrition to facilitate adequate hydration/nutrition with optimum safety and efficiency of swallowing function during P.O. intake without overt signs and symptoms of aspiration. Goal #2: The Patient will utilize recommended compensatory swallowing techniques to facilitate improved airway protection and decreased risk for aspiration during PO intake. Education - Patient has Indicated that the Following Identified Educational Needs: None The Patient has indicated that they have no educational or learning abilities that may effect their care.: Yes - Patient Instruction Patient Education: Diagnosis, Treatment Plan, Home Exercise Program Person Taught: Patient, Family Teaching Method: Discussion
== END 2022-07-20 19:00 | disposition home or self-care (01) ==
LOC: SP 11:52
PROVIDERS: PCP Internal Medicine; Referring Provider Nurse Practitioner Adult Health; Visit Provider Nurse Practitioner Adult Health
DX: R13.10 Dysphagia, unspecified (principal)
CPT/HCPCS: 92610

== ENCOUNTER 2023-04-04 11:09 | Emergency (ER) | payer MEDICARE, SELFPAY ==
[2023-04-04 11:10] VITALS: BP 137/71; PULSE 65; RESP 14; TEMP 36.4; O2SAT 98; BMI 26.6
--- NOTE | 2023-04-04 11:41 | EDS_ITS ---
HPI History of Present Illness Chief Complaint: Lower Extremity Injury Narrative Narrative: 87-year-old male presenting with knee pain. He states that he was working in his workshop at home and kneeled down on an extension cord which he kneeled just below the patella and states that this hurt. He was able to stand up. He did not kneel down hard. He did not fall. He has been having antalgic gait since then. He has been using a walker to get around. Numbness or tingling. No lac erations or abrasions. [facility] Medical History Cataracts, bilateral Cough History of ulceration Kidney stones Non-smoker Schatzki's ring Wears dentures Wears glasses Home Medications ascorbate calcium (vitamin C) 500 mg tablet 500 mg PO DAILY 06/21/20 [History Last Taken Unknown] omega-3 fatty acids 1,000 mg capsule 1,000 mg PO BID 06/21/20 [History Last Taken Unknown] vitamins A,C,D-genc-qcszjy 4,296 mcg-226 mg-90 mg capsule (PreserVision AREDS) 1 cap PO BID 06/21/20 [History Last Taken Unknown] sucralfate 100 mg/mL oral suspension 10 ml PO Q6H #1,000 mL 01/24/22 [Rx Last Taken Unknown] pantoprazole 40 mg tablet,delayed release 40 mg PO DAILY #90 tabs 12/03/22 [Rx Last Taken Unknown] Allergy/AdvReac Type Severity Reaction Status Date / Time No Known Allergies Allergy Verified 07/02/22 10:48 Surgical History History of cystoscopy History of fundoplication Hx of left cataract extraction Hx of right cataract extraction Social History Smoking Status: Never smoker alcohol intake: never substance use type: does not use what type of physical activity do you participate in: none ROS ROS ED Constitutional Constitutional ED: Denies chills, fever(s) or sweats Eyes Eyes: Denies blurry vision or change in vision ENT ENT ED: Denies ear pain or sore throat Cardiovascular Cardiovascular: Denies chest pain, palpitations or racing heartbeat Respiratory/Chest Respiratory/Chest: Denies cough, dyspnea or sputum Gastrointestinal Gastrointestinal: Denies abdominal pain, constipation, diarrhea, nausea or vomiting Genitourinary Genitourinary ED: Denies dysuria, hematuria or urinary frequency Musculoskeletal Musculoskeletal: Reports other Details: Knee pain ; Denies arthralgias, myalgias or neck pain Integumentary Denies abscess, Abrasions or rash Neurologic Neurologic: Denies headache(s), paresthesias or weakness Psychiatric Psychiatric: Denies anxiety, depression, suicidal ideation or suicidal thoughts Endocrine Endocrinology: Denies polydipsia or polyuria EXAM Physical Exam Const Vital Signs: 04/04/23 11:10 Temperature 97.6 F L Temperature Source Temporal Pulse Rate 65 Respiratory Rate 14 Blood Pressure 137/71 H Blood Pressure Mean 93 Pulse Ox 98 Oxygen Delivery Method Room Air General Appearance ED: Negative for pallor HEENT Reports normocephalic and head/scalp atraumatic Eyes PERRL and EOMs intact bilaterally Neck no lymphadenopathy and supple Resp normal respiratory effort and no retractions Cardio regular rate and regular rhythm Narrative: Deferred Extremity Extremity Narrative: Tenderness to palpation beneath the left patella. No ligamentous laxity. No significant edema or bruising. Left knee extensor mechanism is intact. General Extremety ED: Yes edema and tenderness General Extremity: edema Neuro oriented x3 and CN's II-XII intact bilaterally Sensorium / Orientation: alert Motor Exam: strength 5/5 throughout Psych mental status grossly normal Skin no rashes or lesions noted and no wounds General Skin Exam: Negative for jaundice or pallor MDM MDM MDM Narrative Medical decision making narrative: Patient presenting with left knee pain after kneeling down on an extension cord. He has tenderness under the patella. On the left knee. Differential includes knee contusion or fracture. Will obtain x-ray. Patient given Tylenol. Knee x- ray on my interpretation shows a very small joint effusion there is some soft tissue swelling present as well. Radiologist interprets this and agrees. Patient use Tylenol, rest, ice and elevation at home. Impression: 1. Left knee contusion 2. Left knee effusion Radiography Diagnostic Testing: Clinical Impression(s) from Imaging Studies Knee X-Ray 04/04/23 11:50 IMPRESSION: Soft tissue swelling and a small joint effusion. Electronically Signed: Max Mccollum MD at 12:35 EDT , Discharge Plan Triage Chief Complaint: Lower Extremity Injury ED Provider: Eric Ortiz Dx/Rx/DC Orders Instructions: ED Contusion, Lower Extremity, ED Knee Effusion Prescriptions: No Action PreserVision AREDS [id number] capsule 1 cap PO BID omega-3 fatty acids 1,000 mg capsule 1,000 mg PO BID ascorbate calcium (vitamin C) 500 mg tablet 500 mg PO DAILY sucralfate 100 mg/mL suspension 10 ml PO Q6H Qty: 1000 2RF pantoprazole 40 mg tablet,delayed release (DR/EC) 40 mg PO DAILY Qty: 90 3RF Primary Care Provider: Jacqueline Flores Referrals: Jacqueline Flores MD [Primary Care Provider] -
--- NOTE | 2023-04-04 11:50 | RAD_ITS ---
STUDY: X-RAY - LEFT KNEE REASON FOR EXAM: Male, 87 years old. Pain following a fall. TECHNIQUE: 4 view(s) of the knee. COMPARISON: None. FINDINGS: Normal visualized distal femur. Normal visualized proximal tibia and fibula. Normal proximal tibiofibular articulation. Normal medial femorotibial compartment. Normal lateral femorotibial compartment. Normal patellofemoral articulation. Small joint effusion. Soft tissue swelling. RAD/Knee 4 or More Views IMPRESSION: Soft tissue swelling and a small joint effusion. Electronically Signed: Max Mccollum MD at 12:35 EDT ,
== END 2023-04-04 12:55 | disposition home or self-care (01) ==
PROVIDERS: Emergency Provider Student in an Organized Health Care Education/Training Program; PCP Internal Medicine; Visit Provider Student in an Organized Health Care Education/Training Program
DX: S80.02XA Contusion of left knee, initial encounter (principal); M25.462 Effusion, left knee; X58.XXXA Exposure to other specified factors, initial encounter
CPT/HCPCS: 73564; 99282

== ENCOUNTER 2023-12-19 17:30 | Outpatient (RCR) | payer SELFPAY | END 2023-12-24 23:59 | LOC: NS 17:30 | PROVIDERS: PCP Internal Medicine | DX: Z71.3 Dietary counseling and surveillance (principal) ==

== ENCOUNTER → 2024-10-16 | Outpatient (CLI) | payer MEDICARE, SELFPAY ==
--- NOTE | 2024-10-16 13:02 | RAD_ITS ---
PROCEDURE: LEFT SHOULDER, FOUR VIEWS REASON FOR EXAM: Shoulder injury TECHNIQUE: 4 views of each shoulder COMPARISON: None. FINDINGS: LEFT SHOULDER: Degenerative cystic changes of the humeral head. Mild spurring is noted. Normal alignment of the acromioclavicular and glenohumeral joints. Soft tissues are unremarkable. Granulomatous changes in the left lung. 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 No acute osseous findings. Reading Location: [facility]
== END | disposition home or self-care (01) ==
LOC: MTRAD 13:02
PROVIDERS: PCP Internal Medicine; Referring Provider Physician Assistant Surgical; Visit Provider Physician Assistant Surgical
DX: S49.90XA Unspecified injury of shoulder and upper arm, unspecified arm, initial encounter (principal)
CPT/HCPCS: 73030

== ENCOUNTER 2025-02-22 07:54 | Day surgery (SDC) | payer MEDICARE, SELFPAY ==
[2025-02-22] VITALS (8 sets, daily range): BP systolic 104–137; BP diastolic 51–85; PULSE 57–69; RESP 16–18; TEMP 36.1; O2SAT 94–97; BMI 25.9
--- NOTE | 2025-02-22 08:16 | PCM.HP.STD ---
HPI - General General Date of Admission: 02/22/25 Date of Service: 02/22/25 Chief Complaint: Vizcarra's esophagus and dysphagia HPI Narrative TANK RODRIGUEZ, is a 89 M who presents with the chief Complaint: dysphagia OV 07/08/2022 86-year-old male with partial return of dysphagia that had resolved after dilation of the severe Schatzki ring in January 2022, he remains on PPI therapy, we discussed the recommendation to remain on it. We will get modified barium swallow study with speech therapy to eval for oropharyngeal dysphagia vs esophageal. 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 Biopsied. Treated with a heater probe. - Severe Schatzki ring. Dilated. - Medium-sized hiatal hernia. - Chronic gastritis. Biopsied. - Non-bleeding gastric ulcer with no stigmata of bleeding. Biopsied. - Normal second portion of the duodenum. - A pyloroplasty was found, characterized by ulceration. Recommendation: - Discharge patient to home. - Use Protonix (pantoprazole) 40 mg PO BID for 12 weeks. - Use sucralfate suspension 1 gram PO QID for 4 days. - No aspirin, ibuprofen, naproxen, or other non-steroidal anti-inflammatory drugs for 13 days. Esophagram 01/04/2025 The ingested 12 mm tablet of barium is trapped at the gastroesophageal junction. 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 Pt would benefit from continued education. Need for Skilled Speech Therapy Services: Yes - seen in office with his - denies any odynophagia - getting worse - pills going down slowly, having to re-swallow - weight is down 3lbs in past couple of years - denies any HB, - c/o intermittent epigastric burning [facility] Medical History Schatzki's ring Wears glasses Wears dentures History of ulceration Non-smoker Cough Kidney stones Cataracts, bilateral Home Medications ?Medication ?Instructions ?Recorded ?Last Taken ?Type omega-3 fatty acids 1,000 mg 1,000 mg PO BID 06/21/20 02/18/25 History capsule vitamins A,C,U-cdjl-ncaccd 4,296 1 cap PO BID 06/21/20 Unknown History mcg-226 mg-90 mg capsule (PreserVision AREDS) flax seed 1 dose PO DAILY 02/01/25 Unknown History zoquezna 20 mg PO DAILY 02/18/25 Unknown History Allergy/AdvReac Type Severity Reaction Status Date / Time No Known Allergies Allergy Verified 02/22/25 08:16 Surgical History Hx of right cataract extraction Hx of left cataract extraction History of cystoscopy History of fundoplication Social History Smoking Status: Former smoker alcohol intake: never substance use type: does not use what type of physical activity do you participate in: none ROS Constitutional Constitutional: Denies fatigue, fever(s), poor appetite, weight gain or weight loss Gastrointestinal Gastrointestinal: Denies belching, bloating, change in bowel habits, change in stool character, chewing difficulty, coffee ground emesis, constipation, cramping, diarrhea, dyspepsia, dysphagia, early satiety, excessive flatus, fecal incontinence, heartburn, hematemesis, hematochezia, hemorrhoids, loose stools, melena, nausea, odynophagia, rectal bleeding, tenesmus, vomiting or weight changes Physical Exam Const alert, oriented x3, no apparent distress and healthy appearing General Appearance: cooperative GI normal to inspection, nondistended, normoactive bowel sounds, soft to palpation, non-tender and non-distended Percussion: normal to percussion Rectal Exam: deferred Assessment & Plan Assessment/Plan (1) GERD (gastroesophageal reflux disease): (2) Vizcarra esophagus: QUALIFIERS: Vizcarra's esophagus type: without dysplasia Qualified Code(s): K22.70 - 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 He reports he was never on PPI BID or sucralfate. He does endorse improvement with previous dilation with worsening of dysphasia and odynophagia symptoms over the past 2-3 months. I have discontinued pantoprazole 40mg daily and started him on Voquezna 20mg daily. He is resistant to taking medications and declines BID dosing. I recommend Voquezna 20mg daily and I have discussed this medication is not FDA approved for treatment of Vizcarra's esophagus. I advised he can trial Voquezna 20mg daily for symptomatic improvement while we await EGD. He will follow-up in the office post EGD and advised we may need to resume PPI. Note: [employer] speech recognition paper reclaiming machine operator software was used to create portions of this document. Sound-alike and misspelled words, as well as other paper reclaiming machine operator errors may be contained in the documentation. Patient Instructions: EGD Discontinue Pantoprazole Start Voquezna 20mg QD Elevate HOB Follow-up in office post procedure PPIs are the most effective medical treatment for GERD. Some medical studies have identified an association between the long-term use of PPIs and the development of numerous adverse conditions including intestinal infections, pneumonia, stomach cancer, osteoporosis-related bone fractures, chronic kidney disease, deficiencies of certain vitamins and minerals, heart attacks, strokes, dementia, and early . Those studies have flaws, are not considered definitive, and do not establish a [id number] relationship between PPIs and the adverse conditions. High-quality studies have found that PPIs do not significantly increase the risk of any of these conditions except intestinal infections. Nevertheless, we cannot exclude the possibility that PPIs might confer a small increase in the risk of developing these adverse conditions. For the treatment of GERD, gastroenterologists generally agree that the well-established benefits of PPIs far outweigh their theoretical risks.
[2025-02-22] MEDS: Lactated Ringers 1,000 ML 15 ML IV (08:27)
--- NOTE | 2025-02-22 09:00 | EGD_PTH ---
PATIENT: TANK RODRIGUEZ LOC: [facility] U#:[id number] AGE/SX: 89/M ROOM: RE02/22/[address]: Dr. Nick Orellana DO : 1935 BED: DIS: 02/22/2025 SPEC #: [id number] RECD: 02/22/25 11:16 STATUS: FCO TEMO #: [id number] MORRO: 02/22/25 09:[address]: Nick Orellana DEPT: SURGICAL PATHOLOGY RECD BY: Milind Hudson ENTERED: 02/22/25 14:00 SP TYPE: EGD BIOPSY RJ DR: Dr. Jacqueline Flores MD Tissues: A - Esophagus, NOS B - Esophagus, NOS C - Gastric mucous membrane D - Gastric mucous membrane Procedures: Surgery Specimen Level IV HEADER OPERATION: EGD with biopsy and dilation PRE-OP DIAGNOSIS: GERD, Vizcarra's esophagus, dysphagia TISSUE SUBMITTED: A- Proximal esophagus biopsy, B- Distal esophagus biopsy, C- Gastric polyp biopsy, D- Gastric duodenal anastomosis biopsy MICROSCOPIC DIAGNOSIS A. Proximal esophagus, biopsy: - Squamous mucosa with reactive changes. - Negative for eosinophils. B. Distal esophagus, biopsy: - Squamous mucosa with reactive changes. - Scant columnar mucosa negative for goblet cell metaplasia. C. Gastric polyp, biopsy: - Hyperplastic polyp. D. Gastric-duodenal anastomosis, biopsy: - Chronically inflamed gastric mucosa with reactive changes. - Duodenal mucosa with no specific pathologic change. MICROSCOPIC DESCRIPTION Slides are reviewed. GROSS DESCRIPTION A. Received in fixative is one container labeled with the patient's name and designated Proximal esophagus biopsy. The specimen consists of two irregular fragments of light carey soft tissue that in aggregate measure 0.1 to 0.3 cm. The specimen is totally submitted in one cassette. B. Received in fixative is one container labeled with the patient's name and designated Distal esophagus biopsy. The specimen consists of multiple irregular fragments of light carey soft tissue that in aggregate measure <0.1 to 0.5 cm. The specimen is totally submitted in one cassette. C. Received in fixative is one container labeled with the patient's name and designated Gastric polyp biopsy. The specimen consists of one irregular fragment of light craey soft tissue that measures 0.5 cm. The specimen is totally submitted in one cassette. D. Received in fixative is one container labeled with the patient's name and designated Gastric duodenal anastomosis biopsy. The specimen consists of multiple irregular fragments of light carey soft tissue that in aggregate measure <0.1 to 0.4 cm. The specimen is totally submitted in one cassette. LETICIA/ 02/22/2025 CPT:06328e4
--- NOTE | 2025-02-22 09:07 | PRE.ANES_ITS ---
ASA Classification* ASA Classification ASA Classification: 2 Assessment & Plan Anesthesia* Anesthesia Assessment Anesthesia Assessment: Discussed sedation and/or anesthesia options, risks, benefits, and alternatives with patient/parents/legal guardian/POA. Questions invited. The patient/parents/legal guardian/POA seems to understand and agrees to proceed with anesthesia plan. Reviewed the physical assessment, medical history, allergy history and patient home medications list prior to surgery/procedure/anesthetic and documented any changes. Performed airway and anesthesia risk assessments. Anesthesia Type Anesthesia Type: MAC History Source History Obtained from:: Patient and Chart Anesthesia Focused Assessment* Temperature: 96.9 F Pulse Rate: 57 Blood Pressure: 137/85 Respiratory Rate: 18 Pulse Ox: 97 Oxygen Delivery Method: Room Air Airway Assessment Mouth opens: >3 cm Mallampati Score: III Teeth Condition: Dentures (Patient has full upper and lower dentures. They are out.) Neck Range of motion (ROM): Limited ROM (Slight decrease in extension) Labs Anesthesia Preop lab: CBC WBC 5.6 K/mm3 (4.4-11.0) 06/23/20 11:09 06/23/20 RBC 5.36 M/mm3 (4.6-6.2) 06/23/20 11:09 06/23/20 Hgb 16.1 g/dL (13.0-16.5) 06/23/20 11:09 06/23/20 Hct 49.9 % (40-54) 06/23/20 11:09 06/23/20 Plt Count 160 K/mm3 (150-450) 06/23/20 11:09 06/23/20 CHEMISTRY Potassium 4.2 mmol/L (3.5-5.1) 06/23/20 11:09 06/23/20 Sodium 142 mmol/L (136-145) 06/23/20 11:09 06/23/20 BUN 18 mg/dL (7-18) 06/23/20 11:09 06/23/20 Creatinine 1.15 mg/dL (0.70-1.30) 06/23/20 11:09 06/23/20 Glucose 85 mg/dL (74-106) 06/23/20 11:09 06/23/20 COAG Pre-Assessment Diagnosis/Proposed Procedure Planned Operative Procedure(s): EGD Anesthesia History Anesthesia History - deputy sheriff custody: Anesthesia History - deputy sheriff custody Hx Hospitalization No 02/18/25 13:51 Any Problems With Anesthesia No 02/18/25 13:51 Cholinesterase deficiency No 02/18/25 13:51 You/Your Family Experience No 02/18/25 13:51 fever (hyperthermia) with Relationship Recent Exposure to Contagious No 02/22/25 08:17 Disease Does patient have nerve No 02/18/25 13:51 stimulator Patient instructed to have device shut off --Does patient have Pacemaker No 02/22/25 08:17 or ICD? When Was Last Pacemaker Check QUESTION #4 FULL TEXT: You/Your Family Experience fever (hyperthermia) with Anesthesia Last Oral Intake Last Oral intake: Last Oral Intake NPO since 23:00 02/22/25 08:17 Meds taken in AM with sips of No 02/22/25 08:17 water? Meds patient instructed to take am of surgery PONV PONV - deputy sheriff custody: PONV - deputy sheriff custody Female No 02/18/25 13:51 HX of Motion Sickness No 02/18/25 13:51 HX of N/V After Surgery No 02/18/25 13:51 Non-Smoker Yes 02/18/25 13:51 Duration of Surgery greater No 02/18/25 13:51 than 60 minutes Number of Risk Factors 1 02/18/25 13:51 PONV Score Low Risk 02/18/25 13:51 Height & Weight Height & Weight: Anesthesia: Height & Weight Height 5 ft 7 in 02/22/25 08:17 Weight: 75 kg 02/22/25 08:17 Body Mass Index (BMI) 25.9 02/22/25 08:17 Respiratory Assessment Respiratory Assessment - deputy sheriff custody: Respiratory Tract Infection Hx - deputy sheriff custody Hx Respiratory Tract Infection No 02/18/25 13:51 STOP Sleep Apnea STOP Sleep Apnea - deputy sheriff custody: STOP Sleep Apnea - deputy sheriff custody Hx Hypertension No 02/18/25 13:51 Hx Sleep Apnea No 02/18/25 13:51 CPAP No 05/18/15 13:28 BIPAP No 05/17/15 15:42 Do you snore loudly (louder No 02/18/25 13:51 than talking or can be heard Do you often feel tired/ No 02/18/25 13:51 fatigued/ sleepy during daytime? Has anyone observed you stop No 02/18/25 13:51 breathing during sleep? STOP Results Negative 02/18/25 13:51 QUESTION #5 FULL TEXT : Do you snore loudly (louder than talking or can be heard through closed doors)? Tobacco Use History Tobacco Use History - deputy sheriff custody: Tobacco Use History - deputy sheriff custody Tobacco Use Smoking Status Former smoker 02/18/25 13:51 Hx Tobacco Use No 02/18/25 13:51 Years Smoking Packs Smoked per Day Smoking Cessation Date was No - quit smoking greater 02/18/25 13:51 within the last 15 years than 15 years ago Hx Smoking Cessation Date Hx Smoking Cessation Counseling Hematologic Medial History Hematologic Hx - deputy sheriff custody: Hematologic Medical Hx - clinical documentation improvement specialist Hx of Blood Transfusion Yes 02/18/25 13:51 Hx of Transfusion in last 3 No 02/18/25 13:51 Months Date of Last Transfusion (if within last 3 months) Ever experience any problems No 02/18/25 13:51 with transfusion(s)? Specify any problems Hx of Preganancy in last 3 N/A 02/18/25 13:51 Months Nurse Filling Out Transfusion [email or web address] 02/18/25 13:51 & Questions: Date: 02/18/25 02/18/25 13:51 Time: 13:56 02/18/25 13:51 Patient unable to answer at this time (ie. confused, unrespo /Reproduction History /Reproductive History - deputy sheriff custody: /Reproductive Hx- deputy sheriff custody Hx Now No 02/18/25 13:51 Gestational Age (in weeks): EDC: Hx Hx Para Hx Section SAB No 02/18/25 13:51 Active Medications Active Medications: Current Medications Generic Name Dose Route Start Last Admin Trade Name Freq PRN Reason Stop Dose Admin Lactated Ringer's 1,000 mls @ 15 mls/hr 02/22/25 08:15 02/22/25 08:27 IV 15 mls/hr .Q48H NIKIA Administration PFSH Medical History Schatzki's ring Wears glasses Wears dentures History of ulceration Non-smoker Cough Kidney stones Cataracts, bilateral Home Medications ?Medication ?Instructions ?Recorded ?Last Taken ?Type omega-3 fatty acids 1,000 mg 1,000 mg PO BID 06/21/20 02/18/25 History capsule vitamins A,C,C-cggn-qkuwga 4,296 1 cap PO BID 06/21/20 02/21/25 History mcg-226 mg-90 mg capsule (PreserVision AREDS) flax seed 1 dose PO DAILY 02/01/25 History zoquezna 20 mg PO DAILY 02/18/2501/25 History Allergy/AdvReac Type Severity Reaction Status Date / Time No Known Allergies Allergy Verified 02/22/25 08:16 Surgical History Hx of right cataract extraction Hx of left cataract extraction History of cystoscopy History of fundoplication Social History Smoking Status: Former smoker alcohol intake: never substance use type: does not use what type of physical activity do you participate in: none Review of Systems (Anesthesia) ROS Narrative System reviewed and no additional complaints, except as documented.
--- NOTE | 2025-02-22 09:57 | OP.CCLET_ITS ---
02/22/2025 Jacqueline Flores [facility] [address] [place] [address] Re : Upper GI endoscopy procedure for Lee Huitron Dear Dr. Flores This procedure was performed on Saturday, February 22, 2025. My impressions and recommendations are as follows: Impressions : - Moderate Schatzki ring. Biopsied. Dilated. - Small hiatal hernia. - A single gastric polyp. Resected and retrieved. - Erythematous mucosa in the antrum. Biopsied. - No gross lesions in the second portion of the duodenum. Recommendations : - Discharge patient to home. - Resume previous diet. - Continue present medications. - Await pathology results. My findings are described in the full procedure note, which is enclosed. If I can be of further assistance, please feel free to contact me at . Sincerely, Nick Orellana, 02/22/2025 9:56:54 AM This report has been signed electronically.
--- NOTE | 2025-02-22 09:57 | OP.EGD_ITS ---
Patient Name: Lee Huitron Procedure Date: 02/22/2025 9:31 AM Date of : 1935 Age: 89 Procedure: Upper GI endoscopy Indications: Dysphagia Providers: Nick Orellana DO Referring MD: Jacqueline Flores Medicines: Monitored Anesthesia Care Patient Profile: This is an 89 year old male. Refer to note in patient chart for documentation of history and physical. Patient has symptoms of dysphagia with solids. Complications: No immediate complications. Procedure: Pre-Anesthesia Assessment: - Prior to the procedure, a History and Physical was performed, and patient medications and allergies were reviewed. The patient is competent. The risks and benefits of the procedure and the sedation options and risks were discussed with the patient. All questions were answered and informed consent was obtained. Patient identification and proposed procedure were verified by the physician in the pre-procedure area. Mental Status Examination: alert and oriented. Airway Examination: normal oropharyngeal airway and neck mobility. Respiratory Examination: clear to auscultation. CV Examination: normal. Prophylactic Antibiotics: The patient does not require prophylactic antibiotics. Prior Anticoagulants: The patient has taken no anticoagulant or antiplatelet agents except for NSAID medication. ASA Grade Assessment: II - A patient with mild systemic disease. After reviewing the risks and benefits, the patient was deemed in satisfactory condition to undergo the procedure. The anesthesia plan was to use monitored anesthesia care (MAC). Immediately prior to administration of medications, the patient was re-assessed for adequacy to receive sedatives. The heart rate, respiratory rate, oxygen saturations, blood pressure, adequacy of pulmonary ventilation, and response to care were monitored throughout the procedure. The physical status of the patient was re-assessed after the procedure. After obtaining informed consent, the endoscope was passed under direct vision. Throughout the procedure, the patient's blood pressure, pulse, and oxygen saturations were monitored continuously. The gastroscope was introduced through the mouth, and advanced to the second part of duodenum. The upper GI endoscopy was accomplished without difficulty. The patient tolerated the procedure well. Scope In: 9:41:35 AM Scope Out: 9:50:39 AM Total Procedure Duration Time 0 hours 9 minutes 4 seconds Findings: A moderate Schatzki ring was found at the cricopharyngeus, in the upper third of the esophagus and in the distal esophagus. Biopsies were taken with a cold forceps for histology. Estimated blood loss: none. A guidewire was placed and the scope was withdrawn. Dilation was performed with a Savary dilator with no resistance at 57 Fr. The dilation site was examined and showed moderate mucosal disruption. Estimated blood loss was minimal. A small hiatal hernia was present. A single 5 mm sessile polyp with no stigmata of recent bleeding was found in the gastric fundus. The polyp was removed with a jumbo cold forceps. Resection and retrieval were complete. Verification of patient identification for the specimen was done. Estimated blood loss was minimal. Diffuse moderately erythematous mucosa without bleeding was found in the gastric antrum. Biopsies were taken with a cold forceps for histology. Biopsies were taken with a cold forceps for Helicobacter pylori testing. Verification of patient identification for the specimen was done. Estimated blood loss was minimal. No gross lesions were noted in the second portion of the duodenum. Impression: - Moderate Schatzki ring. Biopsied. Dilated. - Small hiatal hernia. - A single gastric polyp. Resected and retrieved. - Erythematous mucosa in the antrum. Biopsied. - No gross lesions in the second portion of the duodenum. Recommendation: - Discharge patient to home. - Resume previous diet. - Continue present medications. - Await pathology results. Procedure Code(s): --- Professional --- 93432, Esophagogastroduodenoscopy, flexible, transoral; with insertion of guide wire followed by passage of dilator(s) through esophagus over guide wire 81938, 59,51, Esophagogastroduodenoscopy, flexible, transoral; with biopsy, single or multiple CPT copyright 2021 [employer]. All rights reserved. The codes documented in this report are preliminary and upon director personal review may be revised to meet current compliance requirements. Nick Orellana DO 02/22/2025 9:56:54 AM This report has been signed electronically. Number of Addenda: 0 Note Initiated On: 02/22/2025 9:31 AM
--- NOTE | 2025-02-22 09:57 | PCM.POST.ANE ---
Anesthesia: Postop Eval I Current Vital Signs Temperature: 97 F Pulse Rate: 69 Blood Pressure: 112/51 Respiratory Rate: 16 Pulse Ox: 95 Assessment Airway patent: Yes Spontaneous unlabored respirations: Yes nausea: No Vomiting: No Anesthesia Complication: No Fluid Hydration Crystalloid volume administer (ml): 500 Total IV fluid infused: 500 Progress Note Anesthesia document: Postop Eval 1 completed: Yes
--- NOTE | 2025-02-22 10:54 | POSTOPAN2_ITS ---
Anesthesia Postop Eval I Sum Postop Eval Completion status Anesthesia document: Postop Eval 1 completed: Yes Anesthesia Postop Eval I Summary Anesthesia Postop Eval I Summary: Anesthesia Postop Eval I: Assessment Summary Airway patent Yes 02/22/25 09:57 CONTROL [email or web address] Spontaneous unlabored Yes 02/22/25 09:57 CONTROL [email or web address] [email or web address].[email or web address] respirations Mental status nausea No 02/22/25 09:57 CONTROL [email or web address] [email or web address].[email or web address] Vomiting No 02/22/25 09:57 CONTROL ROOM [email or web address].[email or web address] Anesthesia Postop Eval I: Fluid Summary Crystalloid volume administer 500 02/22/25 09:57 CONTROL [email or web address] [email or web address].[email or web address] (ml) Colloids volume administered ( ml) Blood Product volume administered (ml) Total IV fluid infused 500 02/22/25 09:57 CONTROL ROOM [email or web address].[email or web address] Anesthesia Postop Eval I: Summary Notes Anesthesia Complication No 02/22/25 09:57 CONTROL ROOM [email or web address].[email or web address] Anesthesia Complication Comment: Post-operative progress note Anesthesia: Postop Eval II Evaluation Mental status: Awake Pain Level: 0 nausea: No Vomiting: No
--- NOTE | 2025-02-22 10:54 | PCM.POSTANE2 ---
Anesthesia Postop Eval I Sum Postop Eval Completion status Anesthesia document: Postop Eval 1 completed: Yes Anesthesia Postop Eval I Summary Anesthesia Postop Eval I Summary: Anesthesia Postop Eval I: Assessment Summary Airway patent Yes 02/22/25 09:57 HISTORY [email or web address] Spontaneous unlabored Yes 02/22/25 09:57 HISTORY [email or web address].[email or web address] respirations Mental status nausea No 02/22/25 09:57 HISTORY [email or web address].[email or web address] Vomiting No 02/22/25 09:57 HISTORY [email or web address].[email or web address] Anesthesia Postop Eval I: Fluid Summary Crystalloid volume administer 500 02/22/25 09:57 HISTORY [email or web address].[email or web address] (ml) Colloids volume administered ( ml) Blood Product volume administered (ml) Total IV fluid infused 500 02/22/25 09:57 HISTORY [email or web address].[email or web address] Anesthesia Postop Eval I: Summary Notes Anesthesia Complication No 02/22/25 09:57 HISTORY [email or web address].[email or web address] Anesthesia Complication Comment: Post-operative progress note Anesthesia: Postop Eval II Evaluation Mental status: Awake Pain Level: 0 nausea: No Vomiting: No
== END 2025-02-22 10:47 | disposition home or self-care (01) ==
LOC: EN 08:00 → AC 08:00
PROVIDERS: PCP Internal Medicine; Referring Provider Internal Medicine; Visit Provider Internal Medicine Gastroenterology
PROC: 0DJ08ZZ Inspection of Upper Intestinal Tract, Via Natural or Artificial Opening Endoscopic (ICD-10-PCS; CPT 43235; principal; 2025-02-22 08:55)
DX: K22.2 Esophageal obstruction (principal); R13.10 Dysphagia, unspecified; K31.7 Polyp of stomach and duodenum; K22.70 Barrett's esophagus without dysplasia; K44.9 Diaphragmatic hernia without obstruction or gangrene; K29.50 Unspecified chronic gastritis without bleeding; Z87.891 Personal history of nicotine dependence
CPT/HCPCS: 43248; 43239; 88305; C1769

== ENCOUNTER → 2025-04-23 | Day surgery (SDC) | payer MEDICARE, SELFPAY ==
[2025-04-23 09:11] VITALS: BP 126/70; PULSE 53; TEMP 36.1; O2SAT 100
[2025-04-23] MEDS: Lidocaine Jelly 2% 20 ML Syringe (URO-JET) 1 APPLIC (09:15)
--- OUTSIDE RECORDS SUMMARY | 2025-04-23 09:21 | XMS RPT_ITS | CCD ---
Author Organization [facility] Care Team Providers Care Credentialing Manager Name Role Phone Dr. Jacqueline Flores Primary Care Provider Dr. Jacqueline Flores Attending Provider [phone] Dr. Jacqueline Flores Referring Provider [phone] Dulce CIVIL ENGINEER IN TRAINING, CIVIL ENGINEER IN TRAINING-C Marcela Restrepo Attending Provider [phone] Dr. Nick Orellana Attending Provider [phone] Dr. Nick Orellana Other Provider [phone] Dr. Jacqueline Flores Primary Care Provider Dr. Jacqueline Flores Referring Provider [phone] Dulce MENJIVAR, CIVIL ENGINEER IN TRAINING-C Marcela Restrepo Attending Provider [phone] Dr. Jacqueline Flores MD Primary Care Provider [phone] Dr. Jacqueline Flores MD Referring Provider Vladimir Lizarraga Attending Provider Vladimir Lizarraga Referring Provider Charles MENJIVAR-CVera Attending Provider Dr. Jacqueline Flores MD Primary Care Provider [phone] Dr. Jacqueline Flores MD Referring Provider Dr. Nick Orellana DO Attending Provider Dr. Nick Orellana DO Other Provider [phone] Jacqueline Flores Primary Care Unavailable Jacqueline Flores Referring Unavailable Vera Soto Attending Unavailable Nick Orellana Consulting Unavailable Jacqueline Flores Primary Care Unavailable Jacqueline Flores Referring Unavailable Friend, Nick Attending Unavailable Jacqueline Flores Primary Care Unavailable Jacqueline Flores Referring Unavailable Friend, Nick Attending Unavailable Vladimir Lizarraga Attending Unavailable Jacqueline Flores Primary Care Unavailable Vladimir Lizarraga Referring Unavailable Jacqueline Flores Primary Care Unavailable Friend, Nick Attending Unavailable Jacqueline Flores Primary Care Unavailable Jacqueline Flores Referring Unavailable Vera Soto Attending Unavailable Vladimir Lizarraga Attending Unavailable Jacqueline Flores Referring Unavailable Jacqueline Flores Primary Care Unavailable Medications Current Medications Medication Drug Class(es) Dates Sig (Normalized) Sig (Original) Flaxseed extract (3 sources) Non-Standardized Food Allergenic Extract, Non-Standardized Plant Allergenic Extract Start: 02-01-2025 flax seed Active 1 NMA PO DAILY February 01, 2025 12:00am Start: 02-01-2025 flax seed Acti ve PO February 01, 2025 12:00am [place]-3 Fatty Acids (6 sources) Start: 06-21-2020 take 1000 mg by mout h twice daily [place]-3 Fatty Acids Active 1000 MG PO TWICE A DAY June 21, 2020 11:42am Start: 06-21-2020 take 1000 mg by mouth twice da zo [place]-3 Fatty Acids Active 1000 MG PO TWICE A DAY June 21, 2020 12:00am Start: 06-21-2020 take 1000 mg by mouth twice da zo [place]-3 Fatty Acids Active 1000 MG PO TWICE A DAY June 20, 2020 11:00pm [place]-3 Fatty Acids 1,000 mg capsule (3 sources) Start: 06-21-2020 take 1 capsule by mouth twice daily [place]-3 Fatty Acids 1,000 mg capsule Active 1000 mg PO TWICE A DAY June 21, 2020 12:00am pantoprazole 40 mg delayed release oral tablet (20 sources) Proton Pump Inhibitor Start: 03-25-2025 take 1 tablet by mouth twice daily Pantoprazole 40 mg tablet,delayed release (DR/EC) Active 40 mg PO TWICE A DAY 180 March 25, 2025 12:00am Start: 03-25-2025 End: 03-25-2025 take 1 tablet by mouth once daily Pantoprazole 40 mg tablet,delayed release (DR/EC) Discontinued 40 mg PO daily March 25, 2025 12:00am March 25, 2025 2:02pm Start: 01-24-2022 End: 02-18-2025 take 1 tablet by mouth once daily Pantoprazole 40 mg tablet,delayed release (DR/EC) Discontinued 40 mg PO DAILY 90 3 January 01, 2025 5:01pm February 18, 2025 1:50pm Vitamins A,C,N-Xpqi-Mpdbgh (Preservision Areds) 14,320-226-200 aqzn-aj-uzsy capsule (9 sources) Start: 06-21-2020 take 1 capsule by mouth twice daily Vitamins A,C,A-Cuzp-Awlxmx (Preservision Areds) 14,320-226-200 kkva-hq-nsih capsule Active 1 CAP PO TWICE A DAY June 21, 2020 11:42am Start: 06-21-2020 Vitamins A,C,E -Zinc-Copper (Preservision Areds) 14,320-226-200 kjeo-tq-fbhc capsule Active 1 NMA PO TWICE A DAY June 21, 2020 12:00am Start: 06-21-2020 take 1 capsule by mo uth twice daily Vitamins A,C,X-Tahr-Bbhszl (Preservision Areds) 14,320-226-200 pyeb-cp-fpfu capsule Active 1 CAP PO TWICE A DAY June 21, 2020 12:00am Start: 06-21-2020 take 1 capsule by mo uth twice daily Vitamins A,C,Q-Iure-Sfodai (Preservision Areds) 14,320-226-200 lmrc-ho-tdoa capsule Active 1 CAP PO TWICE A DAY June 20, 2020 11:00pm Vonoprazan (Voquezna) 20 mg tablet (1 source) Start: 03-25-2025 take 1 tablet by mouth once daily Vonoprazan (Voquezna) 20 mg tablet Active 20 mg PO daily March 25, 2025 12:00am Completed/Discontinued Medications Medication Drug Class(es) Dates Sig (Normalized) Sig (Original) azithromycin 250 mg oral tablet (9 sources) Macrolide Antimicrobial Start: 03-17-2021 End: 11-08-2021 take 2-5 tablets by mouth once daily Azithromycin 250 mg tablet Discontinued 0 PO .COMPLEX 6 0 March 17, 2021 12:00am November 08, 2021 8:33am take 500 mg today (day 1), then 250 mg for 4 days (days 2-5) PO calcium ascorbate 500 mg oral tablet (9 sources) Start: 06-21-2020 End: 02-01-2025 take 1 tablet by mouth once daily Ascorbate Calcium (Vitamin C) 500 mg tablet Discontinued 500 mg PO DAILY June 21, 2020 12:00am February 01, 2025 3:10pm Fluad Quad (65yr up)(PF) 60 mcg (15 mcg x 4)/0.5mL IM syringe (flu vac (2 sources) Start: 07-13-2021 End: 07-13-2021 Fluad Quad (65yr up)(PF) 60 mcg (15 mcg x 4)/0.5mL IM syringe (flu vac Discontinued 60 MCG IM ONCE 0.5 July 13, 2021 2:25pm July 13, 2021 5:58pm sucralfate 100 mg/ml oral suspension (8 sources) Aluminum Complex Start: 01-24-2022 End: 02-01-2025 take 1 mL by mouth every six hours Sucralfate 100 mg/mL suspension Discontinued 10 mL PO EVERY 6 HOURS 1000 2 January 24, 2022 12:00am February 01, 2025 3:10pm voquezna (1 source) Start: 03-25-2025 End: 03-25-2025 take 20 mg by mouth once daily voquezna Discontinued 20 mg PO DAILY March 25, 2025 1:39pm March 25, 2025 1:53pm zoquezna (2 sources) Start: 02-18-2025 End: 03-25-2025 take 20 mg by mouth once daily zoquezna Discontinued 20 mg PO DAILY February 18, 2025 12:00am March 25, 2025 1:40pm Start: 02-18-2025 take 20 mg by mouth once daily zoquezna Active 20 mg PO DAILY February 18, 2025 12:00am Problems Active Problems Problem Classification Problem Date Documented Da te Episodic/Chronic Calculus of urinary tract (9 sources) Kidney stone; Translations: [Calculus of kidney] 06-21-2020 Episodic Cataract (9 sources) Bilateral cataracts; Translations: [Unspecified cataract] 06-21-2020 Chronic Esophageal disorders (18 sources) Vizcarra's esophagus; 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] Onset: 03-10-2025 02-20-2022 Chronic Gastritis and duodenitis (7 sources) Gastritis; Translations: [Gastritis, unspecified, without bleeding] 02-20-2022 Episodic Gastroduodenal ulcer (except hemorrhage) (7 sources) Gastric ulcer; Translations: [Gastric ulcer, unspecified as acute or chronic, without hemorrhage or perforation] 02-20-2022 Chronic Other gastrointestinal disorders (9 sources) H/O: abdominal hernia; Translations: [Personal history of other diseases of the digestive system] 11-08-2021 Episodic Other gastrointestinal disorders (15 sources) Dysphagia; Translations: [Dysphagia, unspecified] 11-08-2021 Episodic Other gastrointestinal disorders (4 sources) Dysphagia, unspecified; Translations: [Dysphagia, unspecified] Onset: 03-10-2025 Episodic Other gastrointestinal disorders (2 sources) Other dysphagia; Translations: [Other dysphagia] Onset: 03-10-2025 Episodic Other lower respiratory disease (9 sources) Cough; Translations: [Cough] 03-17-2021 Episodic Other upper respiratory infections (9 sources) Acute upper respiratory infection; Translations: [Acute upper respiratory infection, unspecified] 03-17-2021 Episodic Residual codes; unclassified (9 sources) History of fundoplication; Translations: [Other specified postprocedural states] 12-25-2021 Episodic Residual codes; unclassified (2 sources) Other specified postprocedural states; Translations: [Personal history of surgery to other organs] Episodic Superficial injury; contusion (4 sources) Contusion of left shoulder; Translations: [Contusion of left shoulder, initial encounter] 10-16-2024 Episodic Past or Other Problems Problem Classification Problem Date Documented Da te Episodic/Chronic Other injuries and conditions due to external causes (1 source) Unspecified injury of shoulder and upper arm, unspecified arm, initial encounter; Translations: [Unspecified injury of shoulder and upper arm, unspecified arm, initial encounter] Onset: 10-29-2024 Episodic Results Test Name Value Interpretation Reference Range Facility Gastroenterology Visit Repor ton 03-25-2025 Gastroenterology Visit Report [facility] [address] [place] [address] OFFICE VISIT Date of Service: 03/25/25 MR#: [id number] Acct: [id number] Name: LEE HUITRON Rep #: [id number] : 1935 Provider: LISETH agee Age/Sex: 89/M Location: [facility] Status: Signed Intake Vital Signs 02/22/25 08:17 03/25/25 13:49 Height 5 ft 7 in 5 ft 7 in Weight: 166 lb 2 oz BMI 26.0 BP 121/69 H Respiration 16 Pulse 65 Temp 98.4 F Temp Source Temporal Pulse Oximetry (%) 95 Oxygen Delivery Method room air Intake Visit Reasons: FU GO OVER PROCEDURE Chief Complaint: dysphagia Die Attacher Required: No Accompanied by: Is patient in pain?: No Allergies No Known Allergies Allergy (Verified 03/25/25 13:37) Medications ???Medication ???Instructions ???Recorded ???Confirmed ???Type omega-3 fatty acids 1,000 mg 1,000 mg PO BID 06/21/20 03/25/25 History capsule vitamins A,C,Y-doko-frnjmz 4,296 1 cap PO BID 06/21/20 03/25/25 His tory mcg-226 mg-90 mg capsule (PreserVision AREDS) flax seed 1 dose PO DAILY 02/01/25 03/25/25 History pantoprazole 40 mg tablet,delayed 40 mg PO BID #180 tabs 03/25/25 0 03/25/25 Rx release vonoprazan 20 mg tablet (Voquezna) 20 mg PO QDAY 03/25/25 03/25/25 History Have you fallen in the past year?: No PFSH Medical History Schatzki's ring Wears glasses Wears dentures History of ulceration Non-smoker Cough Kidney stones Cataracts, bilateral Surgical History Hx of right cataract extraction Hx of left cataract extraction History of cystoscopy History of fundoplication Social History Smoking Status: Former smoker alcohol intake: never substance use type: does not use what type of physical activity do you participate in: none HPI HPI Chief Complaint: dysphagia Details: OV 02/02/2025 89y/o male presents for consultation with complaints of worsening dysphagia over the past few months. 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 He reports he was never on PPI BID or sucralfate. He does endorse improvement with previous dilation with worsening of dysphasia and odynophagia symptoms over the past 2-3 months. I have discontinued pantoprazole 40mg daily and started him on Voquezna 20mg daily. He is resistant to taking medications and declines BID dosing. I recommend Voquezna 20mg daily and I have discussed this medication is not FDA approved for treatment of Vizcarra's esophagus. I advised he can trial Voquezna 20mg daily for symptomatic improvement while we await EGD. He will follow-up in the office post EGD and advised we may need to resume PPI. EGD Discontinue Pantoprazole Start Voquezna 20mg QD Elevate HOB Follow-up in office post procedure EGD 02/22/2025 negative for EoE, negative for Vizcarra's, Chronically inflamed gastric mucosa with reactive changes A moderate Schatzki ring was found at the cricopharyngeus, in the upper third of the esophagus and in the distal esophagus. Dilation was performed with a Savary dilator with no resistance at 57 Fr. A small hiatal hernia was present. A single 5 mm sessile polyp with no stigmata of recent bleeding was found in the gastric fundus. The polyp was removed with a jumbo cold forceps. Resection and retrieval were complete. Diffuse moderately erythematous mucosa without bleeding was found in the gastric antrum. Biopsies were taken with a cold forceps for histology. - Patient seen in office today with and daughter - continues to have dysphagia and vomiting to dislodge - reports his eating pattern has not changed - he eats very little - vomiting to dislodge food one a day - denies any HB or nausea - reports no change in symptoms with Voquezna 20mg daily ROS Const Constitutional: No fatigue, fever(s) or weight change ENT ENT: Positive for difficulty swallowing Gastro GI: Positive for difficulty swallowing; No abdominal pain, belching, bloating, change in bowel habits, change in stool character, coffee ground emesis, constipation, cramping, diarrhea, heartburn, feeling full early, excessive flatus, incontinent of stools, Vomiting blood/hematemesis, Blood in stool, loose stools, Black,tarry stools, nausea/dyspepsia, pain with swallowing, vomiting or other Musc Musculoskeletal: No joint pain Skin Skin: No yellowing of the eye or itchy eyes Psych Psychiatric: No anxiety and No depression Endo Endocrine: No fatigue or weight change Aller/Imm Allergy/Immunologic: No itchy eyes Chris/Lymp Hematologic/Lymphatic: No easy bleeding or easy bruis (more content not included)... Normal [facility] EGD Reporton 02-22-2025 EGD Report [facility] Medical Records Department [address] [place] [address] EGD Report MR#: [id number] Acct: [id number] Name: LEE HUITRON Rep #: [id number] : 1935 89 From: Nick Orellana DO PCP: Dr. Jacqueline Flores MD Status:[facility] Patient Name: Lee Huitron Procedure Date: 02/22/2025 9:31 AM Date of : 1935 Age: 89 Procedure: Upper GI endoscopy Indications: Dysphagia Providers: Nick Orellana DO Referring MD: Jacqueline Flores Medicines: Monitored Anesthesia Care Patient Profile: This is an 89 year old male. Refer to note in patient chart for documentation of history and physical. Patient has symptoms of dysphagia with solids. Complications: No immediate complications. Procedure: Pre-Anesthesia Assessment: - Prior to the procedure, a History and Physical was performed, and patient medications and allergies were reviewed. The patient is competent. The risks and benefits of the procedure and the sedation options and risks were discussed with the patient. All questions were answered and informed consent was obtained. Patient identification and proposed procedure were verified by the physician in the pre-procedure area. Mental Status Examination: alert and oriented. Airway Examination: normal oropharyngeal airway and neck mobility. Respiratory Examination: clear to auscultation. CV Examination: normal. Prophylactic Antibiotics: The patient does not require prophylactic antibiotics. Prior Anticoagulants: The patient has taken no anticoagulant or antiplatelet agents except for NSAID medication. ASA Grade Assessment: II - A patient with mild systemic disease. After reviewing the risks and benefits, the patient was deemed in satisfactory condition to undergo the procedure. The anesthesia plan was to use monitored anesthesia care (MAC). Immediately prior to administration of medications, the patient was re-assessed for adequacy to receive sedatives. The heart rate, respiratory rate, oxygen saturations, blood pressure, adequacy of pulmonary ventilation, and response to care were monitored throughout the procedure. The physical status of the patient was re-assessed after the procedure. After obtaining informed consent, the endoscope was passed under direct vision. Throughout the procedure, the patient's blood pressure, pulse, and oxygen saturations were monitored continuously. The gastroscope was introduced through the mouth, and advanced to the second part of duodenum. The upper GI endoscopy was accomplished without difficulty. The patient tolerated the procedure well. Scope In: 9:41:35 AM Scope Out: 9:50:39 AM Total Procedure Duration Time 0 hours 9 minutes 4 seconds Findings: A moderate Schatzki ring was found at the cricopharyngeus, in the upper third of the esophagus and in the distal esophagus. Biopsies were taken with a cold forceps for histology. Estimated blood loss: none. A guidewire was placed and the scope was withdrawn. Dilation was performed with a Savary dilator with no resistance at 57 Fr. The dilation site was examined and showed moderate mucosal disruption. Estimated blood loss was minimal. A small hiatal hernia was present. A single 5 mm sessile polyp with no stigmata of recent bleeding was found in the gastric fundus. The polyp was removed with a jumbo cold forceps. Resection and retrieval were complete. Verification of patient identification for the specimen was done. Estimated blood loss was minimal. Diffuse moderately erythematous mucosa without bleeding was found in the gastric antrum. Biopsies were taken with a cold forceps for histology. Biopsies were taken with a cold forceps for Helicobacter pylori testing. Verification of patient identification for the specimen was done. Estimated blood loss was minimal. No gross lesions were noted in the second portion of the duodenum. Impression: - Moderate Schatzki ring. Biopsied. Dilated. - Small hiatal hernia. - A single gastric polyp. Resected and retrieved. - Erythematous mucosa in the antrum. Biopsied. - No gross lesions in the second portion of the duodenum. Recommendation: - Discharge patient to home. - Resume previous diet. - Continue present medications. - Await pathology results. Procedure Code(s): --- Professional --- 05041, Esophagogastroduodenos copy, flexible, transoral; with insertion of guide wire followed by passage of dilator(s) through esophagus over guide wire 09015, 59,51, Esophagogastroduodenos copy, flexible, transoral; with biopsy, single or multiple CPT copyright 2021 [employer]. All rights reserved. The codes documented in this report are preliminary and upon environmental journalist review may be revised to meet current compliance requirements. Nick Orellana DO 02/22/2025 9:56:54 AM This report has been signed electron (more content not included)... [facility] MR/POSTOP.ANE 02-22-2025 MR/POSTOP.[facility] Medical Records Department [address] [place] [address] Anesthesia Postop Eval I 02/22/2557 MR#: [id number] Acct: [id number] Name: LEE HUITRON Rep #: [id number] : 1935 89 From: Jose Armando Welch CRNA PCP: Dr. Jacqueline Flores MD Status:REG SDC Y Race: C Location: [place] [address] Anesthesia: Postop Eval I Current Vital Signs Temperature: 97 F Pulse Rate: 69 Blood Pressure: 112/51 Respiratory Rate: 16 Pulse Ox: 95 Assessment Airway patent: Yes Spontaneous unlabored respirations: Yes nausea: No Vomiting: No Anesthesia Complication: No Fluid Hydration Crystalloid volume administer (ml): 500 Total IV fluid infused: 500 Progress Note Anesthesia document: Postop Eval 1 completed: Yes 02/22/2558 Date Jose Armando Welch EMERGENCY PLANNING AND RESPONSE MANAGER Cosigner Signature: Date CC: Signed [facility] MR/[id number] 02-22-2025 MR/POSTOPAN2 [facility] Medical Records Department [address] [place] [address] Anesthesia Postop Eval II 02/22/25 1054 MR#: [id number] Acct: [id number] Name: LEE HUITRON Rep #: [id number] : 1935 89 From: Bobbi Jose EMERGENCY PLANNING AND RESPONSE MANAGER PCP: Dr. Jacqueline Flores MD [place] [facility] Race: C Location: EN Anesthesia Postop Eval I Sum Postop Eval Completion status Anesthesia document: Postop Eval 1 completed: Yes Anesthesia Postop Eval I Summary Anesthesia Postop Eval I Summary: Anesthesia Postop Eval I: Assessment Summary Airway patent Yes 02/22/25 09:57 EMERGENCY PLANNING AND RESPONSE MANAGER.TNES Spontaneous unlabored Yes 02/22/25 09:57 EMERGENCY PLANNING AND RESPONSE MANAGER.TNES respirations Mental status nausea No 02/22/25 09:57 EMERGENCY PLANNING AND RESPONSE MANAGER.TNES Vomiting No 02/22/25 09:57 EMERGENCY PLANNING AND RESPONSE MANAGER.TNES Anesthesia Postop Eval I: Fluid Summary Crystalloid volume administer 500 02/22/25 09:57 EMERGENCY PLANNING AND RESPONSE MANAGER.TNES (ml) Colloids volume administered ( ml) Blood Product volume administered (ml) Total IV fluid infused 500 02/22/25 09:57 EMERGENCY PLANNING AND RESPONSE MANAGER.TNES Anesthesia Postop Eval I: Summary Notes Anesthesia Complication No 02/22/25 09:57 EMERGENCY PLANNING AND RESPONSE MANAGER.TNES Anesthesia Complication Comment: Post-operative progress note Anesthesia: Postop Eval II Evaluation Mental status: Awake Pain Level: 0 nausea: No Vomiting: No 02/22/25 105 Date Bobbi Jose EMERGENCY PLANNING AND RESPONSE MANAGER Cosigner Signature: Date CC: Signed Normal [facility] Surgery Specimen Level Rey 02-22-2025 Surgery Specimen Level IV ---- Patient Age/Sex Location Account Attending Physician ---- LEE HUITRON 89/M EN [id number] Nick Orellana DO ---- Specimen: [id number] Received: 02/22/25 Status: [facility] [place] Num: [id number] Spec Type: EGD BIOPSY Subm Dr: Nick Orellana, HEADER OPERATION: EGD with biopsy and dilation PRE-OP DIAGNOSIS: GERD, Vizcarra's esophagus, dysphagia TISSUE SUBMITTED: A- Proximal esophagus biopsy, B- Distal esophagus biopsy, C- Gastric polyp biopsy, D- Gastric duodenal anastomosis biopsy ---- MICROSCOPIC DIAGNOSIS A. Proximal esophagus, biopsy: - Squamous mucosa with reactive changes. - Negative for eosinophils. B. Distal esophagus, biopsy: - Squamous mucosa with reactive changes. - Scant columnar mucosa negative for goblet cell metaplasia. C. Gastric polyp, biopsy: - Hyperplastic polyp. D. Gastric-duodenal anastomosis, biopsy: - Chronically inflamed gastric mucosa with reactive changes. - Duodenal mucosa with no specific pathologic change. MICROSCOPIC DESCRIPTION Slides are reviewed. GROSS DESCRIPTION A. Received in fixative is one container labeled with the patient's name and designated Proximal esophagus biopsy. The specimen consists of two irregular fragments of light carey soft tissue that in aggregate measure 0.1 to 0.3 cm. The specimen is totally submitted in one cassette. B. Received in fixative is one container labeled with the patient's name and designated Distal esophagus biopsy. The specimen consists of multiple irregular fragments of light carey soft tissue that in aggregate measure <0.1 to 0.5 cm. The specimen is totally submitted in one cassette. C. Received in fixative is one container labeled with the patient's name and designated Gastric polyp biopsy. The specimen consists of one irregular fragment of light carey soft tissue that measures 0.5 cm. The specimen is totally submitted in one cassette. D. Received in fixative is one container labeled with the patient's name and designated Gastric duodenal anastomosis biopsy. The specimen consists of multiple irregular fragments of light carey soft tissue that in aggregate measure <0.1 to 0.4 cm. The specimen is totally submitted in one cassette. LETICIA/ 02/22/2025 [facility]:[id number] ---- Patient Age/Sex Location Account Attending Physician ---- LEE HUITRON 89/M EN [id number] Nick Friend, DO ---- Signed (signature on file) Dr. Paige Priest MD 03/05/25 1201 ---- Normal [facility] Comment on above: Performed By: #### P SUIV #### [facility] Laboratory [address] [place], [address] Gastroenterology Visit Repor ton 02-01-2025 Gastroenterology Visit Report [facility] Gastroenterology [address] [place] [address] OFFICE VISIT Date of Service: 02/01/25 MR#: [id number] Acct: [id number] Name: LEE HUITRON Rep #: [id number] : 1935 Provider: LISETH agee Age/Sex: 89/M Location: [facility] Status: Signed Intake Vital Signs 10/16/24 13:24 02/01/25 15:20 Height 5 ft 7 in 5 ft 7 in Weight: 170 lb 167 lb BMI 26.6 26.2 BP 130/82 H 122/69 H Blood Pressure Location Rt brachial Position Sitting Respiration 16 16 Pulse 55 L 67 Pulse Source NIBP Temp 98.0 F Temp Source Oral Pulse Oximetry (%) 98 95 Oxygen Delivery Method room air room air Intake Visit Reasons: Dysphagia Chief Complaint: dysphagia Die Attacher Required: No Accompanied by: Is patient in pain?: No Allergies No Known Allergies Allergy (Verified 02/01/25 15:09) Medications ???Medication ???Instructions ???Recorded ???Confirmed ???Type omega-3 fatty acids 1,000 mg 1,000 mg PO BID 06/21/20 02/01/25 History capsule vitamins A,C,C-cbkz-cfculr 4,296 1 cap PO BID 06/21/20 02/01/25 His tory mcg-226 mg-90 mg capsule (PreserVision AREDS) pantoprazole 40 mg tablet,delayed 40 mg PO DAILY #90 tabs 01/01/25 02/01/25 Rx release flax seed PO 02/01/25 History Have you fallen in the past year?: Yes PFSH Medical History Schatzki's ring Wears glasses Wears dentures History of ulceration Non-smoker Cough Kidney stones Cataracts, bilateral Surgical History Hx of right cataract extraction Hx of left cataract extraction History of cystoscopy History of fundoplication Social History (Updated 02/01/25 @ 15:24 by Amanda Coronel) Smoking Status: Former smoker alcohol intake: never substance use type: does not use what type of physical activity do you participate in: none HPI HPI Chief Complaint: dysphagia Details: LEE HUITRON, is a 89 M who presents to the office today for OV 07/08/2022 86-year-old male with partial return of dysphagia that had resolved after dilation of the severe Schatzki ring in January 2022, he remains on PPI therapy, we discussed the recommendation to remain on it. We will get modified barium swallow study with speech therapy to eval for oropharyngeal dysphagia vs esophageal. 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 Biopsied. Treated with a heater probe. - Severe Schatzki ring. Dilated. - Medium-sized hiatal hernia. - Chronic gastritis. Biopsied. - Non-bleeding gastric ulcer with no stigmata of bleeding. Biopsied. - Normal second portion of the duodenum. - A pyloroplasty was found, characterized by ulceration. Recommendation: - Discharge patient to home. - Use Protonix (pantoprazole) 40 mg PO BID for 12 weeks. - Use sucralfate suspension 1 gram PO QID for 4 days. - No aspirin, ibuprofen, naproxen, or other non-steroidal anti-inflammatory drugs for 13 days. Esophagram 01/04/2025 The ingested 12 mm tablet of barium is trapped at the gastroesophageal junction. MBS 07/16/2022 MANAGEMENT ENGINEER recommended considering use of bed wedge, limiting food/drink 3 hours before lying down for bed, increasing hydration, avoiding foods high in fat/acid, avoiding carbonated beverages, and avoiding caffeine and chocolate. Pt would benefit from continued education. Need for Skilled Speech Therapy Services: Yes - seen in office with his - denies any odynophagia - getting worse - pills going down slowly, having to re-swallow - weight is down 3lbs in past couple of years - denies any HB, - c/o intermittent epigastric burning ROS Const Constitutional: No fatigue, fever(s) or weight change ENT ENT: Positive for difficulty swallowing Gastro GI: Positive for difficulty swallowing; No abdominal pain, belching, bloating, change in bowel habits, change in stool character, coffee ground emesis, constipation, cramping, diarrhea, heartburn, feeling full early, excessive flatus, incontinent of stools, Vomiting blood/hematemesis, Blood in stool, loose stools, Black,tarry stools, nausea/dyspepsia, pain with swallowing, vomiting or other Musc Musculoskeletal: No joint pain Skin Skin: No yellowing of the eye or itchy eyes Psych Psychiatric: No anxiety and No depression Endo Endocrine: No fatigue or weight change Aller/Imm Allergy/Immunologic: No itchy eyes Chris/Lymp Hematologic/Lymphatic: No easy bleeding or easy bruising Exam Const General: cooperative, healthy appearing, no acute distress and well developed Nutritional Appearance: average body habitus and well nourished Orientation: alert and oriented x3 HE (more content not included)... Normal [facility] Shoulder min 2 Viewson 10-16 Shoulder min 2 Views [facility] Imaging Services [facility] [address], [place] [id number] Shoulder min 2 Views MR#: [id number] Acct: [id number] Name: LEE HUITRON Rep #: [id number] : 1935 M 88 From: Tay Crockett MD PCP: Dr. Jacqueline Flores MD Status: REG CLI Study: Shoulder min 2 Views Date of Exam: 10/16/24 Exam# [id number] Ordering Dr: Vladimir Chappell PROCEDURE: LEFT SHOULDER, FOUR VIEWS REASON FOR EXAM: Shoulder injury TECHNIQUE: 4 views of each shoulder COMPARISON: None. FINDINGS: LEFT SHOULDER: Degenerative cystic changes of the humeral head. Mild spurring is noted. Normal alignment of the acromioclavicular and glenohumeral joints. Soft tissues are unremarkable. Granulomatous changes in the left lung. 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 No acute osseous findings. Reading Location: [facility] CC: AXEL Yanez; Dr. Jacqueline Flores MD Outside Sales Engineer: Signed Normal [facility] Urgent Care Visit Reporton 0 10-16-2024 Urgent Care Visit Report [facility] [address], [address] [place] [address] OFFICE VISIT Date of Service: 10/16/24 MR#: [id number] Acct: [id number] Name: LEE HUITRON Rep #: [id number] : 1935 Provider: AXEL Yanez Age/Sex: 88/M Location: [facility] Status: Signed Intake Vital Signs 04/04/23 11:10 10/16/24 13:24 Height 5 ft 7 in 5 ft 7 in Weight: 170 lb BMI 26.6 BP 130/82 H Blood Pressure Location Rt brachial Position Sitting Respiration 16 Pulse 55 L Pulse Source NIBP Temp 98.0 F Temp Source Oral Pulse Oximetry (%) 98 Oxygen Delivery Method room air Intake Visit Reasons: L SHOULDER PAIN FROM FALL Chief Complaint: left shoulder pain--fall Die Attacher Required: No Is patient in pain?: Yes Allergies No Known Allergies Allergy (Verified 10/16/24 13:24) Have you fallen in the past year?: Yes Nurse's Note: fall at home yesterday, landed on left shoulder, c/o pain to same. full ROM with pain. denies swelling, bruising, denies hx of issues with shoulder. denies additional injuries. [facility] Medical History Daxa's ring Wears glasses Wears dentures History of ulceration Non-smoker Cough Kidney stones Cataracts, bilateral Surgical History Hx of right cataract extraction Hx of left cataract extraction History of cystoscopy History of fundoplication Social History Smoking Status: Never smoker alcohol intake: never substance use type: does not use what type of physical activity do you participate in: none HPI HPI Chief Complaint: left shoulder pain--fall Details: LEE HUITRON, is a 88 M who presents to the office today for complaint of left upper arm pain after a fall on the ice yesterday. Patient states that he is able to move his left arm Without issue. Patient denies numbness, tingling or loss range of motion. Patient states that he primarily wants to make sure there is no fracture or injury to the shoulder joint itself. No other associated symptoms or alleviating/aggravatin g factors. ROS Const Constitutional: Positive for other (6 system ROS completed with pertinent findings in the HPI otherwise normal.) Exam Const General: cooperative and healthy appearing Skin General: no rashes or lesions noted Neuro General: patient alert Extrem Other: Pain to palpation of the left inferior deltoid without deformity. Full range of motion and negative Apley scratch and crossarm testing. Psych Appearance: grossly normal Mental Status: mental status grossly normal Coding Level of Care Code Off vis,new,level 4 Diagnoses Contusion of left shoulder S40.012A Assessment and Plan Assessment and Plan (1) Contusion of left shoulder: Status: Acute Orders: Orders Shoulder min 2 Views Today S49.90XA - Unspecified injury of shoulder and upper arm, unspecified arm, initial encounter Plan 2 view x-ray of the left shoulder read and interpreted by myself finding no acute osseous abnormality, awaiting radiology interpretation at time of patient discharge. Patient advised to use ice alternating with heat as well as ibuprofen or Tylenol as needed for pain unless contraindicated. Advised follow-up with PCP or orthopedics in 10 to 14 days if no better or sooner if worse. Patient other symptomatic management techniques as well as potential red flags and when appropriate to report to the ED. Patient verbalized understanding and agreement with all the above. Clinical Quality Measures Falls Risk Screening/Assistive Devices Have you fallen in the past year?: Yes 10/16/24 1720 Date Vladimir Teranignshanta Signature: Date (if applicable) CC: Normal [facility] Vital Signs Date Time Vital Sign Value Performing Clinician Faci lity 03-25-2025 13:49-0400 Body height 170.[address] Jacqueline Flores MD Work Phone: [facility] 03-25-2025 13:49-0400 Body mass index (BMI) [Ratio] 26 kg/m2 Dr. Jacqueline Flores MD Work Phone: [facility] 03-25-2025 13:49-0400 Body temperature 98.4 [degF] Dr. Jacqueline Flores MD Work Phone: [facility] 03-25-2025 13:49-0400 Body weight 75.[address] Jacqueline Flores MD Work Phone: [facility] 03-25-2025 13:49-0400 Diastolic blood pressure 69 mm[Hg] Dr. Jacqueline Flores MD Work Phone: [facility] 03-25-2025 13:49-0400 Heart rate 65 /min Dr. Jacqueline Flores MD Work Phone: [facility] 03-25-2025 13:49-0400 Respiratory rate 16 /min Dr. Jacqueline Flores MD Work Phone: [facility] 03-25-2025 13:49-0400 SaO2% (BldA) [Mass fraction] 95 % Dr. Jacqueline Flores MD Work Phone: [facility] 03-25-2025 13:49-0400 Systolic blood pressure 121 mm[Hg] Dr. Jacqueline Floers MD Work Phone: [facility] 02-22-2025 10:10-0400 Body temperature 97 [degF] Dr. Jacqueline Flores MD Work Phone: [facility] 02-22-2025 10:10-0400 Diastolic blood pressure 59 mm[Hg] Dr. Jacqueline Flores MD Work Phone: [facility] 02-22-2025 10:10-0400 Heart rate 58 /min Dr. Jacqueline Flores MD Work Phone: [facility] 02-22-2025 10:10-0400 Respiratory rate 16 /min Dr. Jacqueline Flores MD Work Phone: [facility] 02-22-2025 10:10-0400 SaO2% (BldA) [Mass fraction] 96 % Dr. Jacqueline Flores MD Work Phone: [facility] 02-22-2025 10:10-0400 Systolic blood pressure 104 mm[Hg] Dr. Jacqueline Flores MD Work Phone: [facility] 02-22-2025 08:17-0400 Body height 170.[address] Jacqueline Flores MD Work Phone: [facility] 02-22-2025 08:17-0400 Body mass index (BMI) [Ratio] 25.9 kg/m2 Dr. Jacqueline Flores MD Work Phone: [facility] 02-22-2025 08:17-0400 Body weight [address] Jacqueline Flores MD Work Phone: [facility] 02-01-2025 15:20-0400 Body height 170.[address] Jacqueline Flores MD Work Phone: [facility] 02-01-2025 15:20-0400 Body mass index (BMI) [Ratio] 26.2 kg/m2 Dr. Jacqueline Flores MD Work Phone: [facility] 02-01-2025 15:20-0400 Body weight 75.[address] Jacqueline Flores MD Work Phone: [facility] 02-01-2025 15:20-0400 Diastolic blood pressure 69 mm[Hg] Dr. Jacqueline Flores MD Work Phone: [facility] 02-01-2025 15:20-0400 Heart rate 67 /min Dr. Jacqueline Flores MD Work Phone: [facility] 02-01-2025 15:20-0400 Respiratory rate 16 /min Dr. Jacqueline Flores MD Work Phone: [facility] 02-01-2025 15:20-0400 SaO2% (BldA) [Mass fraction] 95 % Dr. Jacqueline Flores MD Work Phone: [facility] 02-01-2025 15:20-0400 Systolic blood pressure 122 mm[Hg] Dr. Jacqueline Flores MD Work Phone: [facility] 10-16-2024 13:24-0500 Body mass index (BMI) [Ratio] 26.6 kg/m2 Dr. Jacqueline Flores MD Work Phone: [facility] 10-16-2024 13:24-0500 Body temperature 98 [degF] Dr. Jacqueline Flores MD Work Phone: [facility] 10-16-2024 13:24-0500 Body weight 77.[address] Jacqueline Flores MD Work Phone: [facility] 10-16-2024 13:24-0500 Diastolic blood pressure 82 mm[Hg] Dr. Jacqueline Flores MD Work Phone: [facility] 10-16-2024 13:24-0500 Heart rate 55 /min Dr. Jacqueline Flores MD Work Phone: [facility] 10-16-2024 13:24-0500 Respiratory rate 16 /min Dr. Jacqueline Flores MD Work Phone: [facility] 10-16-2024 13:24-0500 SaO2% (BldA) [Mass fraction] 98 % Dr. Jacqueline Flores MD Work Phone: [facility] 10-16-2024 13:24-0500 Systolic blood pressure 130 mm[Hg] Dr. Jacqueline Flores MD Work Phone: [facility] 04-04-2023 11:10-0400 Body height 170.18 cm [facility] 04-04-2023 11:10-0400 Body mass index (BMI) [Ratio] 26.6 kg/m2 [facility] 04-04-2023 11:10-0400 Body temperature 97.6 [degF] [facility] 04-04-2023 11:10-0400 Body weight 77.11 kg [facility] 04-04-2023 11:10-0400 Diastolic blood pressure 71 mm[Hg] [facility] 04-04-2023 11:10-0400 Heart rate 65 /min [facility] 04-04-2023 11:10-0400 Respiratory rate 14 /min [facility] 04-04-2023 11:10-0400 SaO2% (BldA) [Mass fraction] 98 % [facility] 04-04-2023 11:10-0400 Systolic blood pressure 137 mm[Hg] [facility] 07-02-2022 10:48-0500 Body height 170.[address] Jacqueline Flores Work Phone: [facility] Work Phone: 07-02-2022 10:48-0500 Body mass index (BMI) [Ratio] 27.2 kg/m2 Dr. Jacqueline Flores Work Phone: [facility] Work Phone: 07-02-2022 10:48-0500 Body weight 78.[address] Jacqueline Flores Work Phone: [facility] Work Phone: 07-02-2022 10:48-0500 Diastolic blood pressure 66 mm[Hg] Dr. Jacqueline Flores Work Phone: [facility] Work Phone: 07-02-2022 10:48-0500 Heart rate 54 /min Dr. Jacqueline Flores Work Phone: [facility] Work Phone: 07-02-2022 10:48-0500 SaO2% (BldA) [Mass fraction] 97 % Dr. Jacqueline Flores Work Phone: [facility] Work Phone: 07-02-2022 10:48-0500 Systolic blood pressure 136 mm[Hg] Dr. Jacqueline Flores Work Phone: [facility] Work Phone: 01-24-2022 12:45-0400 Body temperature 97.1 [degF] Dr. Jacqueline Flores Work Phone: [facility] Work Phone: 01-24-2022 12:45-0400 Diastolic blood pressure 65 mm[Hg] Dr. Jacqueline Flores Work Phone: [facility] Work Phone: 01-24-2022 12:45-0400 Heart rate 58 /min Dr. Jacqueline Flores Work Phone: [facility] Work Phone: 01-24-2022 12:45-0400 Respiratory rate 16 /min Dr. Jacqueline Flores Work Phone: [facility] Work Phone: 01-24-2022 12:45-0400 SaO2% (BldA) [Mass fraction] 94 % Dr. Jacqueline Flores Work Phone: [facility] Work Phone: 01-24-2022 12:45-0400 Systolic blood pressure 117 mm[Hg] Dr. Jacqueline Flores Work Phone: [facility] Work Phone: 01-24-2022 09:34-0400 Body height 170.[address] Jacqueline Flores Work Phone: [facility] Work Phone: 01-24-2022 09:34-0400 Body mass index (BMI) [Ratio] 27.6 kg/m2 Dr. Jacqueline Flores Work Phone: [facility] Work Phone: 01-24-2022 09:34-0400 Body weight 79.[address] Jacqueline Flores Work Phone: [facility] Work Phone: 12-25-2021 15:07-0400 Body height 167.[address] Jacqueline Flores Work Phone: [facility] Work Phone: 12-25-2021 15:07-0400 Body mass index (BMI) [Ratio] 28.8 kg/m2 Dr. Jacqueline Flores Work Phone: [facility] Work Phone: 12-25-2021 15:07-0400 Body weight 81.[address] Jacqueline Flores Work Phone: [facility] Work Phone: 12-25-2021 15:07-0400 Diastolic blood pressure 61 mm[Hg] Dr. Jacqueline Flores Work Phone: [facility] Work Phone: 12-25-2021 15:07-0400 Heart rate 58 /min Dr. Jacqueline Flores Work Phone: [facility] Work Phone: 12-25-2021 15:07-0400 SaO2% (BldA) [Mass fraction] 96 % Dr. Jacqueline Flores Work Phone: [facility] Work Phone: 12-25-2021 15:07-0400 Systolic blood pressure 123 mm[Hg] Dr. Jacqueline Flores Work Phone: [facility] Work Phone: 11-08-2021 08:35-0400 Body temperature 96.5 [degF] Dr. Jacqueline Flores Work Phone: [facility] Work Phone: 11-08-2021 08:35-0400 Body weight 81.[address] Jacqueline Flores Work Phone: [facility] Work Phone: 11-08-2021 08:35-0400 Diastolic blood pressure 70 mm[Hg] Dr. Jacqueline Flores Work Phone: [facility] Work Phone: 11-08-2021 08:35-0400 Heart rate 82 /min Dr. Jacqueline Flores Work Phone: [facility] Work Phone: 11-08-2021 08:35-0400 Respiratory rate 16 /min Dr. Jacqueline Flores Work Phone: [facility] Work Phone: 11-08-2021 08:35-0400 SaO2% (BldA) [Mass fraction] 99 % Dr. Jacqueline Flores Work Phone: [facility] Work Phone: 11-08-2021 08:35-0400 Systolic blood pressure 128 mm[Hg] Dr. Jacqueline Flores Work Phone: [facility] Work Phone: Encounters Encounter Date Encounter Type Care Provider Facility Start: 04-23-2025 ambulatory Jacqueline Flores Facility :[facility] Start: 03-25-2025 End: 03-25-2025 Patient encounter procedure Vera CHILDERS -[facility] Work Phone: Start: 03-25-2025 End: 03-25-[address] Jacqueline Flores MD Work Phone: -[facility] Start: 02-22-2025 Non-patient / Non-visit Nick Orellana DO -[facility] Start: 02-22-2025 End: 02-22-2025 Admission to same day surgery center Nick Orellana DO -Endoscopy Work Phone: Start: 02-22-2025 End: 02-22-[address] Jacqueline Flores MD Work Phone: -Endoscopy Start: 02-01-2025 End: 02-01-2025 Patient encounter procedure Vera CHILDERS -[facility] Work Phone: Start: 02-01-2025 End: 02-01-[address] Jacqueline Flores MD Work Phone: [facility] Work Phone: Start: 10-16-2024 End: 10-16-2024 Patient encounter procedure [facility] REY[facility] Work Phone: Start: 10-16-2024 End: 10-16-2024 ambulatory Vladimir REYNA Facility:[facility] Start: 10-16-2024 End: 10-16-2024 ambulatory Vladimir REYNA Facility:[facility] Start: 12-19-2023 End: 12-24-2023 ambulatory [facility] Work Phone: Start: 12-19-2023 End: 12-24-2023 Discharged Recurring [facility] Work Phone: Start: 04-04-2023 End: 04-04-2023 [facility] Start: 07-16-2022 End: 07-16-[address] Jacqueline Flores Work Phone: [facility] Work Phone: Start: 07-16-2022 End: 07-16-[address] Jacqueline Flores Work Phone: [facility] Start: 07-02-2022 End: 07-02-[address] Jacqueline Flores Work Phone: [facility] Start: 01-24-2022 Non-patient / Non-visit Dr. Jacqueline Flores Work Phone: [facility] Start: 01-24-2022 End: 01-24-2022 Admission to same day surgery center Dr. Jacqueline Flores Work Phone: [facility] Start: 01-04-2022 End: 01-04-[address] Jacqueline Flores Work Phone: [facility] Start: 12-25-2021 End: 12-25-[address] Jacqueline lFores Work Phone: [facility] Start: 11-08-2021 End: 11-08-[address] Jacqueline Flores Work Phone: [facility] Internal Medicine Procedures Date Procedure Procedure Detail Performing Clinician Start: 02-22-[address] Jacqueline ruiz MD Work Phone: Start: 10-16-2024 Plain X-ray of shoulder Dr. Jacqueline womack MD Work Phone: Start: 04-04-2023 Radiologic examination of knee Start: 07-16-[address] Jacqueline Flores Work Phone: Start: 01-24-[address] Jacqueline ruiz Work Phone: Start: 01-04-[address] Jacqueline solomon Work Phone: Plan of Treatment Date Care Activity Detail Author Start: 02-22-2025 Egd insert guide wir e dilator passage esophagus EGD GUIDE WIRE INSERTION [facility] Start: 02-22-2025 Egd transoral biopsy single/multiple EGD BIOPSY SINGLE/MULTIPLE [facility] Start: 02-22-2025 Patient discharge [facility] Start: 07-02-2022 Patient referral [facility] Work Phone: Start: 11-08-2021 Patient referral [facility] Work Phone: Patient Education ED Contusion, Lower Extremity ED Knee Effusion [facility] Work Phone: Patient referral [facility] Work Phone: Immunizations Immunization Date Immunization Notes Care Provider Fa cility 07-31-2022 Covid (Moderna) [facility] Payers Date Payer Category Payer Self-pay [id number] 2024 Unknown [id number] Self-pay [id number] Unknown [id number] 2.16.8 [id number] Unknown [id number] 2.16.8 [id number] Unknown [id number] 2.16.8 [id number] Unknown [id number] 2.16.8 [id number] Unknown [id number] 2.16.8 [id number] Unknown [id number] 2.16.8 [id number] Unknown [id number] 2.16.8 [id number] Social History Date Type Detail Facility Start: 12-25-2021 End: 04-04-2023 Tobacco smoking status NHIS Unknown if ever smoked [facility] Start: 1935 Sex Assigned At Male [facility] Start: 02-01-2025 End: 03-25-2025 Tobacco smoking status NHIS Ex-smoker (finding) [facility] Goals Date Patient Goal Desired Activity /State Mental Status Date Assessment Result Facility 02-22-2025 Cognitive function Light Pain [facility] Work Phone: 02-22-2025 Cognitive function Patient Orien tation Person;Place;Time [facility] Work Phone: 01-24-2022 Cognitive function Voice/Name [facility] Work Phone: Clinical Notes 10-16-2024 to 03-25-2025 Note Date & Type Note Facility 03-25-2025 Progress note [facility] 03-25-2025 Progress note Note Date/Time March 25, 2025 2:12pm [facility] [address] [place] [address] OFFICE VISIT Date of Service: 03/25/25 MR#: [id number] Acct: [id number] Name: LEE HUITRON Rep #: [id number] : 1935 Provider: LISETH Soto Age/Sex: 89/M Location: [facility] [place] Status: Signed Intake Vital Signs 02/22/25 08:17 03/25/25 13:49 Height 5 ft 7 in 5 ft 7 in Weight: 166 lb 2 oz BMI 26.0 BP 121/69 H Respiration 16 Pulse 65 Temp 98.4 F Temp Source Temporal Pulse Oximetry (%) 95 Oxygen Delivery Method room air Intake Visit Reasons: FU GO OVER PROCEDURE Chief Complaint: dysphagia Die Attacher Required: No Accompanied by: Is patient in pain?: No Allergies No Known Allergies Allergy (Verified 03/25/25 13:37) Medications ?Medication ?Instructions ?Recorded ?Confirmed ?Type omega-3 fatty acids 1,000 mg 1,000 mg PO BID 06/21/20 03/25/25 History capsule vitamins A,C,W-ksvb-mnrklp 4,296 1 cap PO BID 06/21/20 03/25/25 History mcg-226 mg-90 mg capsule (PreserVision AREDS) flax seed 1 dose PO DAILY 02/01/25 History pantoprazole 40 mg tablet,delayed 40 mg PO BID #180 ta bs 03/25/25 03/25/25 Rx release vonoprazan 20 mg tablet (Voquezna) 20 mg PO QDAY 03/2503/25/25 History Have you fallen in the past year?: No PFSH Medical History Schatzki's ring Wears glasses Wears dentures History of ulceration Non-smoker Cough Kidney stones Cataracts, bilateral Surgical History Hx of right cataract extraction Hx of left cataract extraction History of cystoscopy History of fundoplication Social History Smoking Status: Former smoker alcohol intake: never substance use type: does not use what type of physical activity do you participate in: none HPI HPI Chief Complaint: dysphagia Details: OV 02/02/2025 89y/o male presents for consultation with complaints of worsening dysphagia overthe past few months. 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 He reports he was neveron PPI BID or sucralfate. He does endorse improvement with previous dilation with worsening of dysphasia and odynophagia symptoms over the past 2-3 months. Dylon discontinued pantoprazole 40mg daily and started him on Voquezna 20mg daily. He is resistant to taking medications and declines BID dosing. I recommend Voquezna 20mg daily and I have discussed this medication is not FDA approved for treatment of Vizcarra's esophagus. I advised he can trial Voquezna 20mg daily for symptomatic improvement while we await EGD. He will follow-up in the office post EGD and advised we may need to resume PPI. EGD Discontinue Pantoprazole Start Voquezna 20mg QD Elevate HOB Follow-up in office post procedure EGD 02/22/2025 negative for EoE, negative for Vizcarra's, Chronically inflamed gastric mucosa with reactive changes A moderate Schatzki ring was found at the cricopharyngeus, in the upper third of the esophagus and in the distal esophagus. Dilation was performed with a Savary dilator with no resistance at 57 Fr. A small hiatal hernia was present. A single 5 mm sessile polyp with no stigmata of recent bleeding was found in the gastric fundus. The polyp was removed with a jumbo cold forceps. Resection and retrieval were complete. Diffuse moderately erythematous mucosa without bleeding was found in the gastric antrum. Biopsies were taken with a cold forceps for histology. - Patient seen in office today with and daughter - continues to have dysphagia and vomiting to dislodge - reports his eating pattern has not changed - he eats very little - vomiting to dislodge food one a day - denies any HB or nausea - reports no change in symptoms with Voquezna 20mg daily ROS Const Constitutional: No fatigue, fever(s) or weight change ENT ENT: Positive for difficulty swallowing Gastro GI: Positive for difficulty swallowing; No abdominal pain, belching, bloating, change in bowel habits, change in stool character, coffee ground emesis, constipation, cramping, diarrhea, heartburn, feeling full early, excessive flatus, incontinent of stools, Vomiting blood/hematemesis, Blood in stool, loose stools, Black,tarry stools, nausea/dyspepsia, pain with swallowing, vomiting or other Musc Musculoskeletal: No joint pain Skin Skin: No yellowing of the eye or itchy eyes Psych Psychiatric: No anxiety and No depression Endo Endocrine: No fatigue or weight change Aller/Imm Allergy/Immunologic: No itchy eyes Chris/Lymp Hematologic/Lymphatic: No easy bleeding or easy bruising Assessment and Plan Assessment and Plan (1) Dysphagia: Status: Acute Qualifiers: Dysphagia type: esophageal phase Qualified Code(s): R13.19 - Other dysphagia Plan: The patient will increase pantoprazole to twice daily to manage esophageal inflammation and improve swallowing. Consideration for an esophageal manometry test to evaluate esophageal motility if symptoms persist. Medications: New pantoprazole 40 mg PO BID 180 tabs 1RF Discontinued pantoprazole Discontinued Reason: Order Changed 40 mg PO QDAY [voquezna] Discontinued Reason: Order Completed 20 mg PO DAILY Plan The 89-year-old male with a history of Vizcarra's esophagus presents with dysphagia. The patient's swallowing difficulties persist despite previous dilation, with food moving slowly down the esophagus and occasional vomiting to dislodge it. Recent endoscopy revealed a moderate Schatzki's ring and gastric inflammation, with biopsies negative for Vizcarra's esophagus and eosinophilic esophagitis. The patient is currently on pantoprazole, with plans to increase the dosage to manage esophageal inflammation and improve swallowing. Consideration for an esophageal manometry test is discussed to evaluate esophageal motility if symptoms persist. Attestation: Documentation on this patient encounter was supported using ambient scribe technology/ voice AI technology. The patient consented to recording for the purpose of documenting the encounter. Provider reviewed content of the generatednote prior to signature. Patient Instructions: Increase pantoprazole 40mg BID Schedule Esophageal Manometry Coding Level of Care Code Off vis,est,level 3 Diagnoses Esophageal dysphagia R13.19 Dysphagia type: esophageal phase Clinical Quality Measures Falls Risk Screening/Assistive Devices Have you fallen in the past year?: No Smoking Screening Smoking Status: Former smoker 03/25/25 1412 <Electronically signed by Vera CHILDERS> Date _ Vera CHILDERS Cosigner Signature: Date (if applicable) CC: ~ [facility] Work Phone: 1(204) 578-533706-30-2025 History and physical note Author Nick Orellana [facility] Note Date/Time February 22, 2025 8:18 am [facility] Medical Records Department [address] [place] [address] History & Physical Exam 02/22/25 0816 MR#: [id number] Acct: [id number] Name: LEE HUITRON Rep #:[id number] : 1935 89 From: Nick Friend DO PCP: Dr. Jacqueline Flores MD [place] [place] [address] HPI - General General Date of Admission: 02/22/25 Date of Service: 02/22/25 Chief Complaint: Vizcarra's esophagus and dysphagia HPI Narrative LEE HUITRON, is a 89 M who presents with the chief Complaint: dysphagia OV 07/08/2022 86-year-old male with partial return of dysphagia that had resolved after dilation of the severe Schatzki ring in January 2022, he remains on PPI therapy, wediscussed the recommendation to remain on it. We will get modified barium swallow study with speech therapy to eval for oropharyngeal dysphagia vs esophageal. 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 Biopsied. Treated with a heater probe. - Severe Schatzki ring. Dilated. - Medium-sized hiatal hernia. - Chronic gastritis. Biopsied. - Non-bleeding gastric ulcer with no stigmata of bleeding. Biopsied. - Normal second portion of the duodenum. - A pyloroplasty was found, characterized by ulceration. Recommendation: - Discharge patient to home. - Use Protonix (pantoprazole) 40 mg PO BID for 12 weeks. - Use sucralfate suspension 1 gram PO QID for 4 days. - No aspirin, ibuprofen, naproxen, or other non-steroidal anti-inflammatory drugs for 13 days. Esophagram 01/04/2025 The ingested 12 mm tablet of barium is trapped at the gastroesophageal junction. MBS 07/16/2022 MANAGEMENT ENGINEER recommended considering use of bed wedge, limiting food/drink3 hours before lying down for bed, increasing hydration, avoiding foods high in fat/acid, avoiding carbonated beverages, and avoiding caffeine and chocolate. Ptwould benefit from continued education. Need for Skilled Speech Therapy Services: Yes - seen in office with his - denies any odynophagia - getting worse - pills going down slowly, having to re-swallow - weight is down 3lbs in past couple of years - denies any HB, - c/o intermittent epigastric burning [facility] Medical History Schatzki's ring Wears glasses Wears dentures History of ulceration Non-smoker Cough Kidney stones Cataracts, bilateral Home Medications ?Medication ?Instructions ?Recorded ?Last Taken ?Type omega-3 fatty acids 1,000 mg 1,000 mg PO BID 06/21/20 02/18/25 History capsule vitamins A,C,P-auqv-duzoti 4,296 1 cap PO BID 06/21/20 Unknown History mcg-226 mg-90 mg capsule (PreserVision AREDS) flax seed 1 dose PO DAILY 02/01/25 Unk nown History zoquezna 20 mg PO DAILY 02/18/25 Unkn own History Allergy/AdvReac Type Severity Reaction Status Date / Time No Known Allergies Allergy Verified 02/22/25 08:16 Surgical History Hx of right cataract extraction Hx of left cataract extraction History of cystoscopy History of fundoplication Social History Smoking Status: Former smoker alcohol intake: never substance use type: does not use what type of physical activity do you participate in: none ROS Constitutional Constitutional: Denies fatigue, fever(s), poor appetite, weight gain or weight loss Gastrointestinal Gastrointestinal: Denies belching, bloating, change in bowel habits, change in stool character, chewing difficulty, coffee ground emesis, constipation, cramping, diarrhea, dyspepsia, dysphagia, early satiety, excessive flatus, fecalincontinence, heartburn, hematemesis, hematochezia, hemorrhoids, loose stools, melena, nausea, odynophagia, rectal bleeding, tenesmus, vomiting or weight changes Physical Exam Const alert, oriented x3, no apparent distress and healthy appearing General Appearance: cooperative GI normal to inspection, nondistended, normoactive bowel sounds, soft to palpation,non-tender and non-distended Percussion: normal to percussion Rectal Exam: deferred Assessment & Plan Assessment/Plan (1) GERD (gastroesophageal reflux disease): (2) Vizcarra esophagus: QUALIFIERS: Vizcarra's esophagus type: without dysplasia QualifiedCode(s): K22.70 - Vizcarra's esophagus without dysplasia (3) Dysphagia: QUALIFIERS: Dysphagia type: esophageal phase Qualified Code(s): R13.19 - Other dysphagia PLAN: Assessment and Plan Assessment and Plan (1) Dysphagia: Status: Acute Qualifiers: Dysphagia type: esophageal phase Qualified Code(s): R13.19 - Other dysphagia (2) Vizcarra esophagus: Status: Acute Qualifiers: Vizcarra's esophagus type: without dysplasia Qualified Code(s): K22.70 -Vizcarra's esophagus without dysplasia Plan 89y/o male presents for consultation with complaints of worsening dysphagia overthe past few months. 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 He reports he was neveron PPI BID or sucralfate. He does endorse improvement with previous dilation with worsening of dysphasia and odynophagia symptoms over the past 2-3 months. Dylon discontinued pantoprazole 40mg daily and started him on Voquezna 20mg daily. He is resistant to taking medications and declines BID dosing. I recommend Voquezna 20mg daily and I have discussed this medication is not FDA approved for treatment of Vizcarra's esophagus. I advised he can trial Voquezna 20mg daily for symptomatic improvement while we await EGD. He will follow-up in the office post EGD and advised we may need to resume PPI. Note: Punchh speech recognition revenue coordinator software was used to create portions of this document. Sound-alike and misspelled words, as well as other revenue coordinator errors may be contained in the documentation. Patient Instructions: EGD Discontinue Pantoprazole Start Voquezna 20mg QD [facility] Follow-up in office post procedure PPIs are the most effective medical treatment for GERD. Some medical studies have identified an association between the long-term use of PPIs and the development of numerous adverse conditions including intestinal infections, pneumonia, stomach cancer, osteoporosis-related bone fractures, chronic kidney disease, deficiencies of certain vitamins and minerals, heart attacks, strokes, dementia, and early . Those studies have flaws, are not considered definitive, and do not establish a xaeff-bin-idiucq relationship between PPIs and the adverse conditions. High- quality studies have found that PPIs do not significantly increase the risk of any of these conditions except intestinal infections. Nevertheless, we cannot exclude the possibility that PPIs might confer a small increase in the risk of developing these adverse conditions. For the treatment of GERD, gastroenterologists generally agree that the well-established benefits of PPIs far outweigh their theoretical risks. 02/22/2518 <Electronically signed by Nick Orellana DO> Cosigner Signature (if applicable): CC: Dr. Jacqueline Flores MD; Nick Orellana DO~ Signed [facility] Work Phone: 1(737) 231-228406-30-2025 Consult note [facility] Medical Records Department [address] [place] [address] Anesthesia Postop Eval I 02/22/25956 MR#: [id number] Acct: [id number] Name: LEE HUITRON Rep #:[id number] : 1935 89 From: Jose Armando WALTON PCP: Dr. Jacqueline Flores MD Status:[facility] Y Race: C Location: [place] [address] Anesthesia: Postop Eval I Current Vital Signs Temperature: 97 F Pulse Rate: 69 Blood Pressure: 112/51 Respiratory Rate: 16 Pulse Ox: 95 Assessment Airway patent: Yes Spontaneous unlabored respirations: Yes nausea: No Vomiting: No Anesthesia Complication: No Fluid Hydration Crystalloid volume administer (ml): 500 Total IV fluid infused: 500 Progress Note Anesthesia document: Postop Eval 1 completed: Yes 02/22/25957 EMERGENCY PLANNING AND RESPONSE MANAGER> Date _ Jose Armando [place] EMERGENCY PLANNING AND RESPONSE MANAGER Cosigner Signature: Date CC: ~ Signed [facility]06-30-2025 Procedure note [facility] Medical Records Department [address] [place] [address] EGD Report MR#: [id number] Acct: [id number] Name: LEE HUITRON Rep #:[id number] : 1935 89 From: Nick Orellana DO PCP: Dr. Jacqueline Flores MD [place] [place] Name: Lee Huitron Procedure Date: 02/22/2025 9:31 AM Date of : 1935 Age: 89 Procedure: Upper GI endoscopy Indications: Dysphagia Providers: Nick Orellana DO Referring MD: Jacqueline Flores Medicines: Monitored Anesthesia Care Patient Profile: This is an 89 year old male. Refer to note in patient chart for documentation of history and physical. Patient has symptoms of dysphagia with solids. Complications: No immediate complications. Procedure: Pre-Anesthesia Assessment: - Prior to the procedure, a History and Physical was performed, and patient medications and allergies were reviewed. The patient is competent. The risks and benefits of the procedure and the sedation options and risks were discussed with the patient. All questions were answered and informed consent was obtained. Patient identification and proposed procedure were verified by the physician in the pre-procedure area. Mental Status Examination: alert and oriented. Airway Examination: normal oropharyngeal airway and neck mobility. Respiratory Examination: clear to auscultation. CV Examination: normal. Prophylactic Antibiotics: The patient does not require prophylactic antibiotics. Prior Anticoagulants: The patient has taken no anticoagulant or antiplatelet agents except for NSAID medication. ASA Grade Assessment: II - A patient with mild systemic disease. After reviewing the risks and benefits, the patient was deemed in satisfactory condition to undergo the procedure. The anesthesia plan was to use monitored anesthesia care (MAC). Immediately prior to administration of medications, the patient was re-assessed for adequacy to receive sedatives. The heart rate, respiratory rate, oxygen saturations, blood pressure, adequacy of pulmonary ventilation, and response to care were monitored throughout the procedure. The physical status of the patient was re-assessed after the procedure. After obtaining informed consent, the endoscope was passed under direct vision. Throughout the procedure, the patient's blood pressure, pulse, and oxygen saturations were monitored continuously. The gastroscope was introduced through the mouth, and advanced to the second part of duodenum. The upper GI endoscopy was accomplished without difficulty. The patient tolerated the procedure well. Scope In: 9:41:35 AM Scope Out: 9:50:39 AM Total Procedure Duration Time 0 hours 9 minutes 4 seconds Findings: A moderate Schatzki ring was found at the cricopharyngeus, in the upper third of the esophagus and in the distal esophagus. Biopsies were taken with a cold forceps for histology. Estimated blood loss: none. A guidewire was placed and the scope was withdrawn. Dilation was performed with a Savary dilator with no resistance at 57 Fr. The dilation site was examined and showed moderate mucosal disruption. Estimated blood loss was minimal. A small hiatal hernia was present. A single 5 mm sessile polyp with no stigmata of recent bleeding was found in the gastric fundus. The polyp was removed with a jumbo cold forceps. Resection and retrieval were complete. Verification of patient identification for the specimen was done. Estimated blood loss was minimal. Diffuse moderately erythematous mucosa without bleeding was found in the gastric antrum. Biopsies were taken with a cold forceps for histology. Biopsies were taken with a cold forceps for Helicobacter pylori testing. Verification of patient identification for the specimen was done. Estimated blood loss was minimal. No gross lesions were noted in the second portion of the duodenum. Impression: - Moderate Schatzki ring. Biopsied. Dilated. - Small hiatal hernia. - A single gastric polyp. Resected and retrieved. - Erythematous mucosa in the antrum. Biopsied. - No gross lesions in the second portion of the duodenum. Recommendation: - Discharge patient to home. - Resume previous diet. - Continue present medications. - Await pathology results. Procedure Code(s): --- Professional --- 02946, Esophagogastroduodenoscopy, flexible, transoral; with insertion of guide wire followed by passage of dilator(s) through esophagus over guide wire 57759, 59,51, Esophagogastroduodenoscopy, flexible, transoral; with biopsy, single or multiple CPT copyright 2021 [employer]. All rights reserved. The codes documented in this report are preliminary and upon environmental journalist review may be revised to meet current compliance requirements. Nick Orellana DO 02/22/2025 9:56:54 AM This report has been signed electronically. Number of Addenda: 0 Note Initiated On: 02/22/2025 9:31 AM 02/22/25 0956 Date _ Nickfeliberto Vo Signature: Date (if indicated) CC: Dr. Jacqueline Flores MD; Nick Orellana DO ~ Date Dictated: 02/22/25930 Date Transcribed: Outside Sales Engineer: RF Signed [facility]06-30-2025 Procedure note [facility] Medical Records Department [address] [place] [address] Operative Report - CC Letter MR#: [id number] Acct: [id number] Name: LEE HUITRON Rep #:[id number] : 1935 89 From: Nick Orellana DO PCP: Dr. Jacqueline Flores MD [place]/22/2025 Jacqueline Flores [facility] [address] [place] [id number] Re : Upper GI endoscopy procedure for Lee Huitron Dear Dr. Flores This procedure was performed on Saturday, February 22, 2025. My impressions and recommendations are as follows: Impressions : - Moderate Schatzki ring. Biopsied. Dilated. - Small hiatal hernia. - A single gastric polyp. Resected and retrieved. - Erythematous mucosa in the antrum. Biopsied. - No gross lesions in the second portion of the duodenum. Recommendations : - Discharge patient to home. - Resume previous diet. - Continue present medications. - Await pathology results. My findings are described in the full procedure note, which is enclosed. If I can be of further assistance, please feel free to contact me at . Sincerely, Nick Orellana DO 02/22/2025 9:56:54 AM This report has been signed electronically. 02/22/25955 Date _ Nick Vilchisigner Signature: Date (if indicated) CC: Dr. Jacqueline Flores MD; Nick Orellana DO ~ Date Dictated: 02/22/25930 Date Transcribed: Outside Sales Engineer: DA Signed [facility]06-30-2025 History and physical note [facility] Medical Records Department [address] [place] [address] History & Physical Exam 02/22/2516 MR#: [id number] Acct: [id number] Name: LEE HUITRON Rep #:[id number] : 1935 89 From: Nick Orellana DO PCP: Dr. Jacqueline Flores MD Status:[facility] Location: [place] [address] HPI - General General Date of Admission: 02/22/25 Date of Service: 02/22/25 Chief Complaint: Vizcarra's esophagus and dysphagia HPI Narrative LEE HUITRON, is a 89 M who presents with the chief Complaint: dysphagia OV 07/08/2022 86-year-old male with partial return of dysphagia that had resolved after dilation of the severe Schatzki ring in January 2022, he remains on PPI therapy, wediscussed the recommendation to remain on it.We will get modified barium swallow study with speech therapy to eval for oropharyngeal dysphagia vs esophageal. 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 Biopsied. Treated with a heater probe. - Severe Schatzki ring. Dilated. - Medium-sized hiatal hernia. - Chronic gastritis. Biopsied. - Non-bleeding gastric ulcer with no stigmata of bleeding. Biopsied. - Normal second portion of the duodenum. - A pyloroplasty was found, characterized by ulceration. Recommendation: - Discharge patient to home. - Use Protonix (pantoprazole) 40 mg PO BID for 12 weeks. - Use sucralfate suspension 1 gram PO QID for 4 days. - No aspirin, ibuprofen, naproxen, or other non-steroidal anti-inflammatory drugs for 13 days. Esophagram 01/04/2025 The ingested 12 mm tablet of barium is trapped at the gastroesophageal junction. MBS 07/16/2022 MANAGEMENT ENGINEER recommended considering use of bed wedge, limiting food/drink3 hours before lying down for bed, increasing hydration, avoiding foods high in fat/acid, avoiding carbonated beverages, and avoiding caffeine and chocolate. Ptwould benefit from continued education. Need for Skilled Speech Therapy Services: Yes - seen in office with his - denies any odynophagia - getting worse - pills going down slowly, having to re-swallow - weight is down 3lbs in past couple of years - denies any HB, - c/o intermittent epigastric burning PFSH Medical History Schatzki's ring Wears glasses Wears dentures History of ulceration Non-smoker Cough Kidney stones Cataracts, bilateral Home Medications ?Medication ?Instructions ?Recorded ?Last Taken ?Type omega-3 fatty acids 1,000 mg 1,000 mg PO BID 06/21/20 02/18/25 History capsule vitamins A,C,W-ryrr-atefei 4,296 1 cap PO BID 06/21/20 Unknown History mcg-226 mg-90 mg capsule (PreserVision AREDS) flax seed 1 dose PO DAILY 02/01/25 Unk nown History zoquezna 20 mg PO DAILY 02/18/25 Unkn own History Allergy/AdvReac Type Severity Reaction Status Date / Time No Known Allergies Allergy Verified 02/22/25 08:16 Surgical History Hx of right cataract extraction Hx of left cataract extraction History of cystoscopy History of fundoplication Social History Smoking Status: Former smoker alcohol intake: never substance use type: does not use what type of physical activity do you participate in: none ROS Constitutional Constitutional: Denies fatigue, fever(s), poor appetite, weight gain or weight loss Gastrointestinal Gastrointestinal: Denies belching, bloating, change in bowel habits, change in stool character, chewing difficulty, coffee ground emesis, constipation, cramping, diarrhea, dyspepsia, dysphagia, earlysatiety, excessive flatus, fecalincontinence, heartburn, hematemesis, hematochezia, hemorrhoids, loose stools, melena, nausea, odynophagia, rectal bleeding, tenesmus, vomiting or weight changes Physical Exam Const alert, oriented x3, no apparent distress and healthy appearing General Appearance: cooperative GI normal to inspection, nondistended, normoactive bowel sounds, soft to palpation,non-tender and non-distended Percussion: normal to percussion Rectal Exam: deferred Assessment & Plan Assessment/Plan (1) GERD (gastroesophageal reflux disease): (2) Vizcarra esophagus: QUALIFIERS: Vizcarra's esophagus type: without dysplasia QualifiedCode(s): K22.70 - Vizcarra's esophagus without dysplasia (3) Dysphagia: QUALIFIERS: Dysphagia type: esophageal phase Qualified Code(s): R13.19 - Other dysphagia PLAN: Assessment and Plan Assessment and Plan (1) Dysphagia: Status: Acute Qualifiers: Dysphagia type: esophageal phase Qualified Code(s): R13.19 - Other dysphagia (2) Vizcarra esophagus: Status: Acute Qualifiers: Vizcarra's esophagus type: without dysplasia Qualified Code(s): K22.70 -Vizcarra's esophagus without dysplasia Plan 89y/o male presents for consultation with complaints of worsening dysphagia overthe past few months. EGD performed May 2022 revealed Vizcarra's without dysplasia, 6mm gastric ulcer with intestinalmetaplasia. He reports he was neveron PPI BID or sucralfate. He does endorse improvement with previous dilation with worsening of dysphasia and odynophagia symptoms over the past 2-3 months. Dylon discontinued pantoprazole 40mg daily and started him on Voquezna 20mg daily. He is resistant to takingmedications and declines BID dosing. I recommend Voquezna 20mg daily and I have discussed this medication is not FDA approved for treatment of Vizcarra's esophagus. I advised he can trial Voquezna 20mg daily for symptomatic improvement while we await EGD. He will follow-up in the office post EGD andadvised we may need to resume PPI. Note: [employer] speech recognition revenue coordinator software was used to create portions of this document. Sound-alike and misspelled words, as well as other revenue coordinator errors may be contained in the documentation. Patient Instructions: EGD Discontinue Pantoprazole Start Voquezna 20mg QD Elevate HOB Follow-up in office post procedure PPIs are the most effective medical treatment for GERD. Some medical studies have identified an association between the long-term use of PPIs and the development of numerous adverse conditions including intestinal infections, pneumonia, stomach cancer, osteoporosis-related bone fractures, chronic kidney disease, deficiencies of certain vitamins and minerals, heart attacks, strokes, dementia, and early . Those studies have flaws, are not considered definitive, and do not establish a uvgwo-[id number]-yomxnn relationship between PPIs and the adverse conditions. High-quality studies have found thatPPIs do not significantly increase the risk of any of these conditions except intestinal infections. Nevertheless, we cannot exclude the possibility that PPIs might confer a small increase in the risk of developing these adverse conditions. For the treatment of GERD, gastroenterologists generally agree that the well- established benefits of PPIs far outweigh their theoretical risks. 02/22/25817 Cosigner Signature (if applicable): CC: Dr. Jacqueline Flores MD; Nick Orellana DO~ Signed [facility]06-30-2025 [facility] Medical Records Department [address] [place] [address] History Physical Exam 02/22/25815 MR#: [id number] Acct: [id number] Name: LEE HUITRON Rep #: [id number] : 1935 89 From: Nick Orellana DO PCP: Dr. Jacqueline Flores MD Status:[facility] Location: [place] [address] HPI - General General Date of Admission: 02/22/25 Date of Service: 02/22/25 Chief Complaint: Vizcarra's esophagus and dysphagia HPI Narrative LEE HUITRON, is a 89 M who presents with the chief Complaint: dysphagia OV 07/08/2022 86-year-old male with partial return of dysphagia that had resolved after dilation of the severe Schatzki ring in January 2022, he remains on PPI therapy, we discussed the recommendation to remain on it. We will get modified barium swallow study with speech therapy to eval for oropharyngeal dysphagia vs esophageal. 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 Biopsied. Treated with a heater probe. - Severe Schatzki ring. Dilated. - Medium-sized hiatal hernia. - Chronic gastritis. Biopsied. - Non-bleeding gastric ulcer with no stigmata of bleeding. Biopsied. - Normal second portion of the duodenum. - A pyloroplasty was found, characterized by ulceration. Recommendation: - Discharge patient to home. - Use Protonix (pantoprazole) 40 mg PO BID for 12 weeks. - Use sucralfate suspension 1 gram PO QID for 4 days. - No aspirin, ibuprofen, naproxen, or other non-steroidal anti-inflammatory drugs for 13 days. Esophagram 01/04/2025 The ingested 12 mm tablet of barium is trapped at the gastroesophageal junction. MBS 07/16/2022 MANAGEMENT ENGINEER recommended considering use of bed wedge, limiting food/drink 3 hours before lying down for bed, increasing hydration, avoiding foods high in fat/acid, avoiding carbonated beverages, and avoiding caffeine and chocolate. Pt would benefit from continued education. Need for Skilled Speech Therapy Services: Yes - seen in office with his - denies any odynophagia - getting worse - pills going down slowly, having to re-swallow - weight is down 3lbs in past couple of years - denies any HB, - c/o intermittent epigastric burning [facility] Schatzki's ring Wears glasses Wears dentures History of ulceration Non-smoker Cough Kidney stones Cataracts, bilateral Home Medications ???Medication ???Instructions ???Recorded ???Last Taken ???Type omega-3 fatty acids 1,000 mg 1,000 mg PO BID 06/21/20 02/18/25 History capsule vitamins A,C,H-huqk-gocmdx 4,296 1 cap PO BID 06/21/20 Unknown Hist ory mcg-226 mg-90 mg capsule (PreserVision AREDS) flax seed 1 dose PO DAILY 02/01/25 Unknown H istory zoquezna 20 mg PO DAILY 02/18/25 Unknown Hi story Allergy/AdvReac Type Severity Reaction Status Date / Time No Known Allergies Allergy Verified 02/22/25 08:16 Surgical History Hx of right cataract extraction Hx of left cataract extraction History of cystoscopy History of fundoplication Social History Smoking Status: Former smoker alcohol intake: never substance use type: does not use what type of physical activity do you participate in: none ROS Constitutional Constitutional: Denies fatigue, fever(s), poor appetite, weight gain or weight loss Gastrointestinal Gastrointestinal: Denies belching, bloating, change in bowel habits, change in stool character, chewing difficulty, coffee ground emesis, constipation, cramping, diarrhea, dyspepsia, dysphagia, early satiety, excessive flatus, fecal incontinence, heartburn, hematemesis, hematochezia, hemorrhoids, loose stools, melena, nausea, odynophagia, rectal bleeding, tenesmus, vomiting or weight changes Physical Exam Const alert, oriented x3, no apparent distress and healthy appearing General Appearance: cooperative GI normal to inspection, nondistended, normoactive bowel sounds, soft to palpation, non-tender and non- distended Percussion: normal to percussion Rectal Exam: deferred Assessment Plan Assessment/Plan (1) GERD (gastroesophageal reflux disease): (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 [facility]06-09-2025 Chief complaint+Reason for visit Narrative * Chief Complaint Admit Date Dysphagia February 01, 2025 2:51p m FU GO OVER PROCEDURE March 25, 2025 1:3 2pm Reason for Visit Admit Date Vizcarra esophagus February 01, 2025 2:51p m Dysphagia February 01, 2025 2:51p m Vizcarra esophagus February 22, 2025 7:54 am Dysphagia February 22, 2025 7:54 am GERD (gastroesophageal reflux disease) [facility] 2024 7:54am Dysphagia March 25, 2025 1:32 pm [facility] [employer] Work Phone: 1(956) 495-106406-09-2025 Evaluation note* Diagnosis Onset Date Resolution Status Admit Date Vizcarra esophagus acute January 2:51pm Dysphagia acute February 01, 2025 2:51pm Vizcarra esophagus acute February 222024 7:54am Dysphagia acute February 22 7:54am GERD (gastroesophageal reflu x disease) acute February 22, 2025 7:54am [facility] Work Phone: 1(526) 146-647506-09-2025 Evaluation note* Diagnosis Onset Date Resolution Status Admit Date Vizcarra esophagus acute January 2:51pm Dysphagia acute February 01, 2025 2:51pm Vizcarra esophagus acute February 222024 7:54am Dysphagia acute February 22 7:54am GERD (gastroesophageal reflu x disease) acute February 22, 2025 7:54am Dysphagia acute March 25 1:32pm [place] [employer] Work Phone: 1(328) 434-519202-21-2025 Evaluation note* Diagnosis Onset Date Resolution Status Admit Date Contusion of left shoulder acute October 16, 2024 12:43pm Dysphagia acute February 01, 2025 2:51pm [facility] Work Phone: Consult note Author Jose Armando Welch [facility] Note Date/Time February 22, 2025 9:58 am [facility] Medical Records Department [address] [place] [id number] Anesthesia Postop Eval I 02/22/25 0957 MR#: [id number] Acct: [id number] Name: LEE HUITRON Rep #:[id number] : 1935 89 From: Jose Armando WALTON PCP: Dr. Jacqueline Flores MD Status:REG SDC Y Race: C Location: [place] [address] Anesthesia: Postop Eval I Current Vital Signs Temperature: 97 F Pulse Rate: 69 Blood Pressure: 112/51 Respiratory Rate: 16 Pulse Ox: 95 Assessment Airway patent: Yes Spontaneous unlabored respirations: Yes nausea: No Vomiting: No Anesthesia Complication: No Fluid Hydration Crystalloid volume administer (ml): 500 Total IV fluid infused: 500 Progress Note Anesthesia document: Postop Eval 1 completed: Yes 02/22/25 0958 <Electronically signed by Jose Armando Welch EMERGENCY PLANNING AND RESPONSE MANAGER> Date _ Jose Armando Welch EMERGENCY PLANNING AND RESPONSE MANAGER Cosigner Signature: Date CC: ~ Signed [facility] Work Phone: Discharge summary Author Eric Ortiz [facility] April 04, 2023 12:46pm Note Date/Time April 04, 2023 11 :44am [facility] Medical Records Department [address] [place] [address] Emergency Department Summary 04/04/23 MR#: [id number] Acct: [id number] Name: JENNIFERLEE Tabby Rep #:[id number] : 1935 87 From: Eric Ortiz DO PCP: Dr. Jacqueline Flores MD Status:REG ER Location: ED HPI History of Present Illness Chief Complaint: Lower Extremity Injury Narrative Narrative: 87-year-old male presenting with knee pain. He states that he was working in his workshop at home and kneeled down on an extension cord which he kneeled justbelow the patella and states that this hurt. He was able to stand up. He did not kneel down hard. He did not fall. He has been having antalgic gait since then. He has been using a walker to get around. Numbness or tingling. No lacerations or abrasions. [facility] Medical History Cataracts, bilateral Cough History of ulceration Kidney stones Non-smoker Schatzki's ring Wears dentures Wears glasses Home Medications ascorbate calcium (vitamin C) 500 mg tablet 500 mg PO DAILY 06/21/20 [History Last Taken Unknown] omega-3 fatty acids 1,000 mg capsule 1,000 mg PO BID 06/21/20 [History Last Taken Unknown] vitamins A,C,A-dekr-wbkdnd 4,296 mcg-226 mg-90 mg capsule (PreserVision AREDS) 1cap PO BID 06/21/20 [History Last Taken Unknown] sucralfate 100 mg/mL oral suspension 10 ml PO Q6H #1,000 mL 01/24/22 [Rx Last Taken Unknown] pantoprazole 40 mg tablet,delayed release 40 mg PO DAILY #90 tabs 12/03/22 [Rx Last Taken Unknown] Allergy/AdvReac Type Severity Reaction Status Date / Time No Known Allergies Allergy Verified 07/02/22 10:48 Surgical History History of cystoscopy History of fundoplication Hx of left cataract extraction Hx of right cataract extraction Social History Smoking Status: Never smoker alcohol intake: never substance use type: does not use what type of physical activity do you participate in: none ROS ROS ED Constitutional Constitutional ED: Denies chills, fever(s) or sweats Eyes Eyes: Denies blurry vision or change in vision ENT ENT ED: Denies ear pain or sore throat Cardiovascular Cardiovascular: Denies chest pain, palpitations or racing heartbeat Respiratory/Chest Respiratory/Chest: Denies cough, dyspnea or sputum Gastrointestinal Gastrointestinal: Denies abdominal pain, constipation, diarrhea, nausea or vomiting Genitourinary Genitourinary ED: Denies dysuria, hematuria or urinary frequency Musculoskeletal Musculoskeletal: Reports other Details: Knee pain ; Denies arthralgias, myalgias or neck pain Integumentary Denies abscess, Abrasions or rash Neurologic Neurologic: Denies headache(s), paresthesias or weakness Psychiatric Psychiatric: Denies anxiety, depression, suicidal ideation or suicidal thoughts Endocrine Endocrinology: Denies polydipsia or polyuria EXAM Physical Exam Const Vital Signs: 04/04/23 11:10 Temperature 97.6 F L Temperature Source Temporal Pulse Rate 65 Respiratory Rate 14 Blood Pressure 137/71 H Blood Pressure Mean 93 Pulse Ox 98 Oxygen Delivery Method Room Air General Appearance ED: Negative for pallor HEENT Reports normocephalic and head/scalp atraumatic Eyes PERRL and EOMs intact bilaterally Neck no lymphadenopathy and supple Resp normal respiratory effort and no retractions Cardio regular rate and regular rhythm Narrative: Deferred Extremity Extremity Narrative: Tenderness to palpation beneath the left patella. No ligamentous laxity. No significant edema or bruising. Left knee extensor mechanism is intact. General Extremety ED: Yes edema and tenderness General Extremity: edema Neuro oriented x3 and CN's II-XII intact bilaterally Sensorium / Orientation: alert Motor Exam: strength 5/5 throughout Psych mental status grossly normal Skin no rashes or lesions noted and no wounds General Skin Exam: Negative for jaundice or pallor MDM MDM MDM Narrative Medical decision making narrative: Patient presenting with left knee pain after kneeling down on an extension cord. He has tenderness under the patella. On the left knee. Differential includes knee contusion or fracture. Will obtain x-ray. Patient given Tylenol. Knee x-ray on my interpretation shows a very small joint effusion there is some soft tissue swelling present as well. Radiologist interprets this and agrees. Patient use Tylenol, rest, ice and elevation at home. Impression: 1. Left knee contusion 2. Left knee effusion Radiography Diagnostic Testing: Clinical Impression(s) from Imaging Studies Knee X-Ray 04/04/23 11:50 IMPRESSION: Soft tissue swelling and a small joint effusion. Electronically Signed: Max Mccollum MD at 12:35 EDT Reading Location ID and State: [facility] / [place] , Service support , Discharge Plan Triage Chief Complaint: Lower Extremity Injury ED Provider: Eric Ortiz Dx/Rx/DC Orders Instructions: ED Contusion, Lower Extremity, ED Knee Effusion Prescriptions: No Action PreserVision AREDS [phone] dgob-zy-dmsy capsule 1 cap PO BID omega-3 fatty acids 1,000 mg capsule 1,000 mg PO BID ascorbate calcium (vitamin C) 500 mg tablet 500 mg PO DAILY sucralfate 100 mg/mL suspension 10 ml PO Q6H Qty: 1000 2RF pantoprazole 40 mg tablet,delayed release (DR/EC) 40 mg PO DAILY Qty: 90 3RF Primary Care Provider: Jacqueline Flores Referrals: Jacqueline Flores MD [Primary Care Provider] - Disposition Disposition: Home, Self Care What to do if you have Problems For any increased pain, shortness of breath, bleeding, nausea or vomiting, chestpain, or any unexpected problems, contact your Primary Care Provider. Call [facility] ([phone]) or report to the closest Emergency Room. Call 911 if necessary. 04/04/23 1246 <Electronically signed by Eric Ortiz DO> Cosigner Signature (if applicable): CC: Dr. Jacqueline Flores MD ~ Signed [facility] Work Phone: Evaluation note* Diagnosis Onset Date Resolution Status Dysphagia acute History of fundoplication ac [place] [facility] Work Phone: Evaluation note* Diagnosis Onset Date Resolution Status Dysphagia acute [facility] Work Phone: Evaluation noteNo assessment information available [facility] Work Phone: [facility] Work Phone: [facility] Work Phone: Reason for referral (narrative)No reason for referral information [facility]Pat[facility] Work Phone: Chief Complaint and Reason for Visit Chief Complaint DIFFCULITY SWALLOWIN G FATTY LIVER DYSPHAGIA Reason for Visit Dysphagia History of fundoplication Chief Complaint FU DYSPHAGIA Reason for Visit Dysphagia Chief Complaint LEFT KNEE Chief Complaint DWD Chief Complaint Admit Date L SHOULDER PAIN FROM FALL October 16, 2024 12:43pm shoulder injury-LEFT October 16, 2024 1:01pm Dysphagia February 01, 2025 2:51p m Reason for Visit Admit Date Contusion of left shoulder September 12:43pm Dysphagia February 01, 2025 2:51p m Chief Complaint Admit Date Dysphagia February 01, 2025 2:51p m Reason for Visit Admit Date Vizcarra esophagus February 01, 2025 2:51p m Dysphagia February 01, 2025 2:51p m Vizcarra esophagus February 22, 2025 7:54 am Dysphagia February 22, 2025 7:54 am GERD (gastroesophageal reflux disease) [facility] 2024 7:54am Advance Directives No Advanced Directives Records Found Advance Directive Response Recorded Date/ Time Advance Directives Yes April 3:42pm Living Will Yes May 17, 2015 3:42pm Power of Technology Administrator Yes April 3:42pm Advance Directive Response Recorded Date/ Time Advance Directives Yes April 3:42pm Living Will Yes January 18, 2022 1 :18pm Power of Technology Administrator Yes January 18, 2022 1:18pm Advance Directive Response Recorded Date/ Time Advance Directives Yes April 2:42pm Living Will Yes January 18, 2022 1 2:18pm Power of Technology Administrator Yes January 18, 2022 12:18pm Advance Directive Response Recorded Date/ Time Advance Directives Yes April 3:42pm Living Will Yes April 04 11:14am Power of Technology Administrator Yes April 04 023 11:14am Name of Medical Power of Technology Administrator . April 04, 2023 11:14am Advance Directive Response Recorded Date/ Time Advance Directives Yes April 3:42pm Living Will Yes April 04 11:14am Power of Technology Administrator Yes April 04 11:14am Advance Directive Response Recorded Date/ Time Advance Directives Yes April 3:42pm Advance Directive Response Recorded Date/ Time Do you have a Healthcare Power of Technology Administrator? No February 18, 2025 1:51pm Advance Directives Yes April 3:42pm Summary Purpose Family History No Family History Records Found Additional Source Comments Goals (unrecognized section and content) Goals may be documented in a n alternate sectionGoals may be documented in an alternate sectionGoals may be documented in an alternate sectionGoals may be documented in an alternate sectionGoals may be documented in an alternate sectionGoals may be documented in an alternate sectionGoals may be documented in an alternate section Care Teams (unrecognized sec tion and content) Team Status: Active Member Role Status Dates Dr. Jacqueline Flores MD Primary Care Provider Active Team Status: Inactive Member Role Status Dates Dr. Jacqueline Flores MD Primary Care Provider Active Dr. Eric Ortiz DO Emergency Provider Active Team Status: Inactive Member Role Status Dates Dr. Jacqueline Flores MD Primary Care Provider Active Self Referred Attending Provider Active Team Status: Inactive Member Role Status Dates Dr. Jacqueline Flores MD Primary Care Provider Active Start: October 16, 2024 End: October 16, 2024 Dr. Jacqueline Flores MD Referring Provider Active Start: October 16, 2024 End: October 16, 2024 AXEL Ridley Attending Provider Active Sta rt: October 16, 2024 End: October 16, 2024 Team Status: Inactive Member Role Status Dates Dr. Jacqueline Flores MD Primary Care Provider Active Start: October 16, 2024 End: October 16, 2024 AXEL Ridley Attending Provider Active Sta rt: October 16, 2024 End: October 16, 2024 AXEL Ridley Referring Provider Active Sta rt: October 16, 2024 End: October 16, 2024 Team Status: Inactive Member Role Status Dates Dr. Jacqueline Flores MD Primary Care Provider Active Start: February 01, 2025 End: February 01, 2025 Dr. Jacqueline Flores MD Referring Provider Active Start: February 01, 2025 End: February 01, 2025 LISETH Jaimes Attending Provider Active Start: February 01, 2025 End: February 01, 2025 Team Status: Active Member Role/Relationship Status Dates Dr. Jacqueline Flores MD Primary Care Provider Active Team Status: Inactive Member Role/Relationship Status Dates Dr. Jacqueline Flores MD Primary Care Provider Active Start: February 01, 2025 End: February 01, 2025 Dr. Jacqueline Flores MD Referring Provider Active Start: February 01, 2025 End: February 01, 2025 LISETH Jaimes Attending Provider Active Start: February 01, 2025 End: February 01, 2025 Team Status: Inactive Member Role/Relationship Status Dates Dr. Jacqueline Flores MD Primary Care Provider Active Start: February 22, 2025 End: February 22, 2025 Dr. Jacqueline Flores MD Referring Provider Active Start: February 22, 2025 End: February 22, 2025 Dr. Nick Orellana DO Attending Provider Active Start: February 22, 2025 End: February 22, 2025 Team Status: Active Member Role/Relationship Status Dates Dr. Jacqueline Flores MD Primary Care Provider Active Start: February 22, 2025 Dr. Jacqueline Flores MD Referring Provider Active Start: February 22, 2025 Dr. Nick Orellana DO Attending Provider Active Start: February 22, 2025 Dr. Nick Orellana , Other Provider Active St art: February 22, 2025 Team Status: Inactive Member Role/Relationship Status Dates Dr. Jacqueline Flores MD Primary Care Provider Active Start: March 25, 2025 End: March 25, 2025 Dr. Jacqueline Flores MD Referring Provider Active Start: March 25, 2025 End: March 25, 2025 LISETH Jaimes Attending Provider Active Start: March 25, 2025 End: March 25, 2025 (unrecognized sect ion and content) No Status Records Found INFORMATION SOURCE (unrecogn ized section and content) DATE CREATED AUTHOR 04/18/2025 [facility] FOR RECORDS PERTAINING TO PATIENTS WHO ARE OR HAVE BEEN ENROLLED IN A CHEMICAL DEPENDENCY/SUBSTANCEABUSE PROGRAM, SOME INFORMATION MAY BE OMITTED. This clinical summary was aggregated from multiple sources. Caution should be exercised in using it in the provision of clinical care. This summary normalizes information from multiple sources, and as a consequence, information in this document may materially change the coding, format and clinical context of patient data. In addition, data may be omitted in some cases. CLINICAL DECISIONS SHOULD BE BASED ON THE PRIMARY CLINICAL RECORDS. [facility]. provides no warranty or guarantee of the accuracy or [phone] in [phone] [id number]
== END | disposition home or self-care (01) ==
PROVIDERS: PCP Internal Medicine; Referring Provider Internal Medicine; Visit Provider Internal Medicine Gastroenterology
PROC: F00ZJWZ Instrumental Swallowing and Oral Function Assessment using Swallowing Equipment (ICD-10-PCS; CPT 43235; principal; 2025-04-23 08:55)
DX: R13.19 Other dysphagia (principal)
CPT/HCPCS: 91010

== ENCOUNTER → 2025-05-26 | Outpatient (CLI) | payer MEDICARE, SELFPAY | END | disposition home or self-care (01) | PROVIDERS: PCP Internal Medicine; Referring Provider Nurse Practitioner Acute Care; Visit Provider Nurse Practitioner Acute Care | DX: R11.10 Vomiting, unspecified (principal) | CPT/HCPCS: 78264; A9541 ==